=== PATIENT | male | born 1975 | race Caucasian/White ===

== ENCOUNTER 2024-02-13 06:13 | Inpatient (IN) | payer OTHER, SELFPAY ==
[2024-02-13] VITALS (16 sets, daily range): BP systolic 122–142; BP diastolic 80–102; PULSE 79–111; RESP 24–26; TEMP 36.1–36.6; O2SAT 76–94; BMI 33.1; BMI 33.3
--- NOTE | 2024-02-13 06:30 | CRLHL7_ITS ---
For Patients: As a result of the Cures Act, medical imaging exams and procedure reports are released immediately into your electronic medical record. You may view this report before your referring provider. If you have questions, please contact your health care provider. INDICATION: Hypoxia, COVID COMPARISON: None. TECHNIQUE: PA and lateral 2 view chest. FINDINGS: Lung volumes are moderate. Diffuse reticulonodular/interstitial opacity. No pulmonary edema. No pleural effusion. No pneumothorax. No pneumomediastinum. Cardiomegaly. Normal upper mediastinal contours. Bones: Normal for age. IMPRESSION: Pattern of lung opacities typically seen with viral or atypical infection. Cardiomegaly without findings of pulmonary edema. Dictated by Lissett Durand MD @ 02/13/2024 7:02:30 AM (Electronically Signed)
[2024-02-13 06:41] LABS: HCO3 VBG 29 mmol/L (21-28); PCO2 VBG 50 mmHG (40-50); PO2 VBG 54.7 mmHG (25-47); pH VBG 7.372 (7.32-7.43)
[2024-02-13 06:45] LABS: Basophils Absolute Auto 0.01 K/uL (0.00-0.30); Basophils Percent Auto 0.2 % (0.0-3.0); Hematocrit 35.4 % (37.0-53.0); Hemoglobin* 11.1 gm/dL (13.5-17.5); Immature Granulocytes Abs Auto 0.02 K/uL (0.00-0.30); Immature Granulocytes Pct Auto 0.3 %; Lymphocytes Percent Auto 10.3 % (20-44); Mean Corpuscular HGB Conc 31 gm/dL (32-36); Mean Corpuscular Hemoglobin 31 pg (26-34); Mean Corpuscular Volume 99 fL (80-100); Monocytes Percent Auto 11.9 % (0.0-11.0); Neutrophils Percent Auto 77.3 % (42.0-72.0); Platelet Count* 170 K/uL (140-440); Red Blood Count 3.57 m/uL (4.30-5.90); White Blood Count* 6.12 K/uL (4.50-11.00)
[2024-02-13 06:55] LABS: Slide Review Reflex No
--- NOTE | 2024-02-13 06:59 | ED_ITS ---
HPI - SOB/Dyspnea General Date Seen: 02/13/24 Chief Complaint: Shortness of Breath/Dyspnea Stated Complaint: Covid + and SOB Time Seen by Provider: 02/13/24 06:29 Source: patient Mode of arrival: ambulatory Limitations: no limitations History of Present Illness HPI Narrative: Patient is a 49-year-old male who was in his usual state of health until about four days ago when he developed a cough and chest congestion. His girlfriend had tested positive for COVID. He did a home COVID test two days ago that was positive. He did not call the clinic for consideration of an appointment or tr eatment but has contraindications to Paxlovid. His symptoms worsened yesterday and got much worse during the night with increased shortness of breath. He presents this morning struggling to breathe with a continuous cough. He denies chest pains. He has not been eating or drinking well but denies nausea and vomiting. No history of lung disease. He has type 2 diabetes but does not check his blood sugar. His medications include Flomax, Lamictal, atorvastatin, Seroquel, sertraline, omeprazole. He received COVID vaccine a couple of years ago but nothing the past 1-2 years. Related Data Home Medications ?Medication ?Instructions ?Recorded ?Confirmed atorvastatin 80 mg tablet 80 mg PO QPM 02/13/24 02/13/24 lamotrigine 150 mg tablet 150 mg PO BID 02/13/24 02/13/24 omeprazole 20 mg tablet,delayed 20 mg PO DAILY 02/13/24 02/13/24 release quetiapine 100 mg tablet 300 mg PO QPM 02/13/24 02/13/24 sertraline 100 mg tablet 200 mg PO DAILY 02/13/24 02/13/24 tamsulosin 0.4 mg capsule 0.4 mg PO DAILY 02/13/24 02/13/24 Allergies Allergy/AdvReac Type Severity Reaction Status Date / Time No Known Drug Allergies Allergy Verified 02/13/24 08:01 Review of Systems Narrative: Review of systems is outlined above otherwise noted to be negative. He does not check his blood sugars. His PCP is in [place]. [facility] Medical History (Updated 02/13/24 @ 07:33 by Guero Godoy MD) GERD (gastroesophageal reflux disease) ?K21.9 - Gastro-esophageal reflux disease without esophagitis (ICD-10) BPH (benign prostatic hyperplasia) ?N40.0 - Benign prostatic hyperplasia without lower urinary tract symptoms (ICD-10) Major depression, chronic ?F32.9 - Major depressive disorder, single episode, unspecified (ICD-10) Mixed hyperlipidemia ?E78.2 - Mixed hyperlipidemia (ICD-10) Type 2 diabetes mellitus, without long-term current use of insulin ?E11.9 - Type 2 diabetes mellitus without complications (ICD-10) Social History (Updated 02/13/24 @ 07:29 by Guero Godoy MD) 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 He is in moderate respiratory distress with some audible wheezing. HEENT: Conjunctiva clear. Tympanic membranes are pearly white bilaterally. Posterior pharynx is clear without erythema or exudate. Neck is supple without adenopathy. Lungs: Coarse and congested throughout. There is expiratory wheezes. No localizing rales or rhonchi. Heart: Regular rate and rhythm without murmur. Abdomen: Soft and nontender. No guarding, rigidity, rebound. Bowel sounds are normal. No palpable masses. Extremities: No cyanosis or edema. Good distal pulses. Skin: No abnormalities noted of the exposed skin. Neurologic: Awake, alert, fully oriented. Neurologic exam is nonfocal. Const: Vital Signs, click to edit/add: Vital Signs - 24 hr 02/13/24 06:24 02/13/24 06:25 02/13/24 06:38 Temperature 97.8 F Pulse Rate [Pulse Oximeter] 111 H Respiratory Rate 26 H Blood Pressure [Ri ght Upper Arm] 136/82 Pulse Oximetry 76 L 92 92 Oxygen Delivery Me thod Room Air OxyMask Oxygen Flow Rate 5 02/13/24 06:38 Temperature Pulse Rate [Pulse Oximeter] Respiratory Rate Blood Pressure [Ri ght Upper Arm] Pulse Oximetry 92 Oxygen Delivery Me thod OxyMask Oxygen Flow Rate 5 Course Course ED Course: Patient is seen and examined. With an OxyMask at 5 L we are able to get his sats up to 91%. Labs and chest x-ray are ordered. He is given a DuoNeb. IV is established and he is given remdesivir 200 mg and dexamethasone 10 mg IV. Reevaluation(s) Reevaluation #1: CBC shows a white blood count of 6000, hemoglobin 11.1, normal platelet count. Venous blood gas shows pH 7.37, pCO2 50, PO2 54. Basic metabolic panel is normal other than a sodium of 133 and a glucose of 202. D-dimer is 0.68. LFTs and CRP are pending. Chest x-ray shows diffuse interstitial infiltrates but no consolidation. CT of the chest is ordered. Reevaluation #2: LFTs are normal. CRP is 26. CT scan of the chest shows diffuse infiltrates but no evidence of pulmonary embolism or consolidation. I attempted to order Tocilizumab 800mg IV but the order was canceled by pharmacy. I spoke with Carrie Marrufo who kindly agrees to admit him for further care. Vital Signs Vital signs: Initial Vital Signs Temperature 97.8 F 02/13/24 06:24 Temperature Source Temporal Artery Scan 02/13/24 06:24 Pulse Rate 111 H 02/13/24 06:24 Respiratory Rate 26 H 02/13/24 06:24 Respiratory Effort Normal, Spontaneous, Non-Labored 02/13/24 06:24 Respiratory Depth Normal 02/13/24 06:24 Respiratory Pattern Tachypnea 02/13/24 06:24 Blood Pressure 136/82 02/13/24 06:24 Blood Pressure Mean 100 02/13/24 06:24 Blood Pressure Position Sitting 02/13/24 06:24 Pulse Oximetry 76 L 02/13/24 06:24 Oxygen Delivery Method Room Air 02/13/24 06:24 Vital Signs Temperature 97.8 F 02/13/24 06:24 Pulse Rate 111 H 02/13/24 06:24 Respiratory Rate 26 H 02/13/24 06:24 Blood Pressure 136/82 02/13/24 06:24 Pulse Oximetry 76 L 02/13/24 06:24 Oxygen Delivery Method Room Air 02/13/24 06:24 Temperature 97.8 F 02/13/24 06:24 Pulse Rate 111 H 02/13/24 06:24 Respiratory Rate 26 H 02/13/24 06:24 Blood Pressure 136/82 02/13/24 06:24 Pulse Oximetry 92 02/13/24 06:38 Oxygen Delivery Method OxyMask 02/13/24 06:38 Oxygen Flow Rate 5 02/13/24 06:38 Medications Administered Medications: Discontinued Medications Generic Name Dose Route Start Last Admin Trade Name Lara PRN Reason Stop Dose Admin Albuterol/Ipratropium 1 neb 02/13/24 06:57 02/13/24 07:21 Iprat-Albut 0.5-2.5 Mg/3 Ml Neb IH 02/13/24 06:58 1 neb ONCE ONE Administration Dexamethasone 10 mg 02/13/24 07:07 02/13/24 07:24 Dexamethasone 10 Mg/Ml Inj IVP 02/13/24 07:08 10 mg ONCE ONE Administration Remdesivir 200 mg/ Sodium 290 mls @ 290 mls/hr 02/13/24 07:30 02/13/24 07:24 Chloride IVPB 02/13/24 08:29 290 mls/hr ONCE ONE Administration MDM - SOB/Dyspnea Lab Data Labs: Lab Results 02/13/24 02/13/24 02/13/24 Range/Units 06:38 07:03 07:45 WBC 6.12 (4.50-11.00) K/uL RBC 3.57 L (4.30-5.90) m/uL Hgb 11.1 L (13.5-17.5) gm/dL Hct 35.4 L (37.0-53.0) % MCV 99 (80-100) fL MCH 31 (26-34) pg MCHC 31 L (32-36) gm/dL RDW Coeff of All 14.0 (11.5-15.5) % Plt Count 170 (140-440) K/uL Neut % (Auto) 77.3 H (42.0-72.0) % Lymph % (Auto) 10.3 L (20-44) % [place] % (Auto) 11.9 H (0.0-11.0) % Eos % (Auto) 0.0 (0.0-7.0) % Baso % (Auto) 0.2 (0.0-3.0) % Neut # (Auto) 4.70 (1.7-7.0) K/uL Lymph # (Auto) 0.60 L (0.90-2.90) K/uL [place] # (Auto) 0.70 (0.00-0.90) K/UL Eos # (Auto) 0.00 (0.00-0.50) K/uL Baso # (Auto) 0.01 (0.00-0.30) K/uL Abs Immat Gran (auto) 0.02 (0.00-0.30) K/uL Imm/Tot Granulo (auto) 0.3 % D-Dimer Quant (PE/DVT) 0.68 H (0.00-0.50) ug/ml VBG pH 7.372 (7.32-7.43) VBG pCO2 50 (40-50) mmHG VBG pO2 54.7 H (25-47) mmHG VBG HCO3 29 H (21-28) mmol/L Sodium 133 L (135-149) mmol/L Potassium 4.4 (3.6-5.1) mmol/L Chloride 96 (96-114) mmol/L Carbon Dioxide 29 (20-32) mmol/L Anion Gap 8 (7-15) mEq/L BUN 13 (5-24) mg/dL Creatinine 0.8 (0.5-1.5) mg/dL Estimated Creat Clear 103.01 Estimated GFR 110 ml/min Glucose 202 H (60-115) mg/dL Calcium 8.8 (8.4-10.6) mg/dL Total Bilirubin 0.3 (0.1-1.5) mg/dL Direct Bilirubin 0.3 (0.0-0.5) mg/dL AST 30 (12-35) U/L ALT 23 (4-50) U/L Alkaline Phosphatase 53 (40-150) U/L C-Reactive Protein 26.1 H (0.5-1.0) mg/dL Total Protein 6.7 (6.0-8.3) g/dL Albumin 4.0 (3.3-5.0) g/dL SARS-CoV-2 (PCR) POSITIVE SARS-CoV-2 A (Negative) Influenza Type A (PCR) Negative PCR FLU A (Negative) Influenza Type B (PCR) Negative PCR FLU B (Negative) Lab Acknowledgement Test Added Discharge Plan Discharge Clinical Impression: COVID-19, Hypoxia Patient Disposition: Admitted As Inpatient Condition: Guarded
[2024-02-13 07:08] LABS: Chloride* 96 mmol/L (96-114); Potassium* 4.4 mmol/L (3.6-5.1); Sodium* 133 mmol/L (135-149)
[2024-02-13 07:11] LABS: Anion Gap 8 mEq/L (7-15); Blood Urea Nitrogen* 13 mg/dL (5-24); Carbon Dioxide* 29 mmol/L (20-32); Creatinine* 0.8 mg/dL (0.5-1.5); D Dimer Quantitative* 0.68 ug/ml (0.00-0.50); Est. Creatinine Clearance* 103.01; Estimated Glomerular Filt Rate 110 ml/min; Glucose* 202 mg/dL (60-115)
[2024-02-13 07:12] LABS: Calcium* 8.8 mg/dL (8.4-10.6)
[2024-02-13] MEDS: IPRAT-ALBUT 0.5-2.5 MG/3 ML NEB 1 NEB IH (07:21)
[2024-02-13] MEDS: dexAMETHasone 10 MG/ML inj IVP (07:24)
--- NOTE | 2024-02-13 07:26 | CRLHL7_ITS ---
For Patients: As a result of the Century Cures Act, medical imaging exams and procedure reports are released immediately into your electronic medical record. You may view this report before your referring provider. If you have questions, please contact your health care provider. Indication: COVID, shortness of breath. Technique: CT pulmonary arteriography of the chest was performed following the administration of 95 mL Isovue 370. Comparison: 02/13/2024 radiographs. Findings: Lungs and pleura: Respiratory motion. There are patchy nodular/tree-in-bud opacities within both lungs, most pronounced in the right lower lobe. Mild interlobular septal thickening on the right. Trace right pleural effusion. No left pleural effusion. No pneumothorax. Small amount of secretions within the trachea. Heart and great vessels: Borderline enlarged heart. No pericardial effusion. Aorta and pulmonary artery are normal in caliber. Pulmonary artery opacification is adequate. Evaluation of the distal segmental and subsegmental pulmonary artery branches is limited due to respiratory motion. No pulmonary embolism is identified to the proximal segmental level. Thyroid and mediastinum: Thyroid is normal. Enlarged right greater than left hilar lymph nodes measuring up to 1.6 cm in short axis. Prominent mediastinal lymph nodes which measure less than 1 cm in short axis. Chest wall: Unremarkable. Visualized upper abdomen: Unremarkable. 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 Minimal multilevel degenerative disc disease. Impression: 1. Limited evaluation of the distal segmental and subsegmental pulmonary arteries due to respiratory motion. No pulmonary embolism identified to the proximal segmental level. 2. Multifocal nodular/tree-in-bud opacities within both lungs favoring bronchiolitis/bronchopneumonia. 3. Right greater than left hilar lymphadenopathy, favored to be reactive. Please note that all CT scans at this facility use dose modulation, iterative reconstruction, and/or weight-based dosing when appropriate to reduce radiation dose to as low as reasonably achievable. Dictated by Cortney Zambrano MD @ 02/13/2024 8:20:04 AM (Electronically Signed)
[2024-02-13 07:29] LABS: Alanine Aminotransferase* 23 U/L (4-50); Alkaline Phosphatase* 53 U/L (40-150); Aspartate Amino Transferase* 30 U/L (12-35); Bilirubin Direct* 0.3 mg/dL (0.0-0.5); Bilirubin Total* 0.3 mg/dL (0.1-1.5); Total Protein* 6.7 g/dL (6.0-8.3)
[2024-02-13 07:46] LABS: C Reactive Protein* 26.1 mg/dL (0.5-1.0)
--- NOTE | 2024-02-13 08:21 | PM.IMHP1 ---
Hospitalist- H&P: HPI History of Present Illness Date Seen: 02/13/24 Chief complaint: Covid + and SOB Narrative: Mushtaq Beltran is a 49 year old male who presented to the ER this morning for cough and dyspnea. Known COVID infection (home test positive on 02/10), has felt poorly since 02/07. This morning, breathing was quite a bit worse, so presented to Emergency Department. ER Course and Findings: - presenting VS: O2 saturation 76% on RA, HR 111, RR 26, T 97.8 - Hgb 11.1 (was 13.5 in February 2023) - elevated D-dimer, no acute abnormalities on CXR or CTA of chest - normal WBC, + lymphopenia - Given Dexamethasone, Duoneb, and Remdesivir No previous lung disease. Histories updated below. PCP is Dr. Hernandez at [facility]. Review of Systems Status of ROS: Reports: 10 or more systems reviewed and unremarkable except as noted in History and below Narrative: - mild nausea, no vomiting or diarrhea PFSH PFSH Medical History (Updated 02/13/24 @ 10:49 by Nelsy Winston MD) GERD (gastroesophageal reflux disease) ?K21.9 - Gastro-esophageal reflux disease without esophagitis (ICD-10) BPH (benign prostatic hyperplasia) ?N40.0 - Benign prostatic hyperplasia without lower urinary tract symptoms (ICD-10) Major depression, chronic ?F32.9 - Major depressive disorder, single episode, unspecified (ICD-10) Mixed hyperlipidemia ?E78.2 - Mixed hyperlipidemia (ICD-10) Type 2 diabetes mellitus, without long-term current use of insulin ?E11.9 - Type 2 diabetes mellitus without complications (ICD-10) Surgical History (Updated 02/13/24 @ 10:43 by Nelsy Winston MD) History of tonsillectomy ?Z90.89 - Acquired absence of other organs (ICD-10) Social History (Updated 02/13/24 @ 10:43 by Nelsy Winston MD) Narrative: nursing home partner would be MDM if needed, non-smoker (uses chewing tobacco), no ETOH use. Works in [employer]. Full Code. What is your current living situation?: I presently have a place to live Problems where you live: no known problems Problems where you live details: NA In the past 12 months, utilities in danger of being shut off: no In the past 12 mos, have been you worried that your food would run out before you had money to buy more?: never true In the past 12 mos, the food you bought just didn't last and you didn't have money to buy more?: never true Highest level of school completed/degree received: high school graduate Smoking Status: Former smoker Do you use any of these nicotine containing products: Smokeless Tobacco Second hand tobacco smoke exposure: Yes How often do you have a drink containing alcohol: never AUDIT-C Alcohol total score: 0 Non-prescribed substance use: denies use Caffeine: Yes How often does anyone, including family, friends and others, physically hurt you: never How often does anyone, including family, friends and others, insult or talk down to you: never How often does anyone, including family, friends and others, threaten you with harm: never How often does anyone, including family, friends and others, scream or curse at you: never Meds Home Medications and Allergies Home Medications ?Medication ?Instructions ?Recorded ?Confirmed ?Type atorvastatin 80 mg tablet 80 mg PO QPM 02/13/24 02/13/24 History lamotrigine 150 mg tablet 150 mg PO BID 02/13/24 02/13/24 History omeprazole 20 mg tablet,delayed 20 mg PO DAILY 02/13/24 02/13/24 History release quetiapine 100 mg tablet 300 mg PO QPM 02/13/24 02/13/24 History sertraline 100 mg tablet 200 mg PO DAILY 02/13/24 02/13/24 History tamsulosin 0.4 mg capsule 0.4 mg PO DAILY 02/13/24 02/13/24 History Allergies Allergy/AdvReac Type Severity Reaction Status Date / Time No Known Drug Allergies Allergy Verified 02/13/24 08:01 Exam Narrative: Exam Narrative: GEN: Alert and oriented, answering questions appropriately. Appears ill and wearing supplemental oxygen HEENT: EOMIs bilaterally, no scleral icterus CV: RRR, No concerning murmurs R: Intermittent tachypnea, able to speak in full sentences, rhonchi throughout bilateral lung [place] Ab: Soft, nondistended, tolerates palpation Ext: wwp, no concerning edema Skin: No concerning skin lesions or rashes on exposed skin Neuro: Nonfocal Psych: Appropriate Const: Vital Signs, click to edit/add: Vital Signs - 24 hr 02/13/24 06:24 02/13/24 06:25 02/13/24 06:38 Temperature 97.8 F Pulse Rate [Pulse Oximeter] 111 H Respiratory Rate 26 H Blood Pressure [Ri ght Upper Arm] 136/82 Pulse Oximetry 76 L 92 92 Oxygen Delivery Me thod Room Air OxyMask Oxygen Flow Rate 5 02/13/24 06:38 Temperature Pulse Rate [Pulse Oximeter] Respiratory Rate Blood Pressure [Ri ght Upper Arm] Pulse Oximetry 92 Oxygen Delivery Me thod OxyMask Oxygen Flow Rate 5 Hospitalist - H&P: Result Labs Labs: Short CBC 02/13/24 Range/Units 06:38 WBC 6.12 (4.50-11.00) K/uL Hgb 11.1 L (13.5-17.5) gm/dL Hct 35.4 L (37.0-53.0) % Plt Count 170 (140-440) K/uL BMP 02/13/24 06:38 Sodium 133 L Potassium 4.4 Chloride 96 Carbon Dioxide 29 BUN 13 Creatinine 0.8 Glucose 202 H Calcium 8.8 Liver Function 02/13/24 Range/Units 06:38 Total Bilirubin 0.3 (0.1-1.5) mg/dL Direct Bilirubin 0.3 (0.0-0.5) mg/dL AST 30 (12-35) U/L ALT 23 (4-50) U/L Alkaline Phosphatase 53 (40-150) U/L Albumin 4.0 (3.3-5.0) g/dL Assessment and Plan Assessment and plan (1) Acute hypoxic respiratory failure: Problem comment: - 2/2 acute COVID infection - COVID specific therapies per below, RT referral, supplemental oxygen Status: Acute (2) COVID-19: Problem comment: - Remdesivir and Dexamethasone initiated in ER on 02/12 - given length of illness and oxygen requirement, will transition to Baricitinib as COVID-specific therapy Status: Acute (3) Type 2 diabetes mellitus, without long-term current use of insulin: Problem comment: - diet controlled, last A1C 6.4 (01/31/24) - anticipate some degree of hyperglycemia while on steroid therapy - accuchecks and SSI Status: Acute (4) GERD (gastroesophageal reflux disease): Problem comment: - continue PPI Status: Acute Plan - per above - partner updated at bedside, questions answered
[2024-02-13 08:30] LABS: PCR FLU A Negative PCR FLU A (Negative); PCR FLU B Negative PCR FLU B (Negative); SARS PCR* POSITIVE SARS-CoV-2 (Negative)
[2024-02-13] MEDS: BARICITINIB 2 MG TAB 4 MG PO (11:20)
[2024-02-13] MEDS: NICOTINE 4 MG GUM BUCCAL ×3 (11:28→21:57)
[2024-02-13] MEDS: ATORVASTATIN CALCIUM 40 MG TABLET 80 MG PO (18:13)
--- NOTE | 2024-02-13 18:27 | PC.NURSE ---
Pt alert and oriented. Pt had no complaints of pain. Pt up with SBA at bedside. Pt is on High Flow O2 settings 30;50;36 maintaining saturations of 88-93%. Per RT Pt to be 88% or higher. Pt has SOB at rest and with exertion. Pt has been using aerobika and has been able to expel some secretions.?
[2024-02-13] MEDS: ENOXAPARIN 40 MG/0.4 ML INJ SUBCUT (21:54)
[2024-02-13] MEDS: QUETIAPINE 100 MG TABLET 300 MG PO (21:54)
[2024-02-13] MEDS: SODIUM CHLORIDE 0.9 % (FLUSH) 10 ML SYRINGE 5 ML IVF (21:55)
[2024-02-13] MEDS: lamoTRIgine 100 MG TABLET 150 MG PO (21:55)
[2024-02-14] VITALS (16 sets, daily range): BP systolic 125–148; BP diastolic 67–96; PULSE 68–85; RESP 20–24; TEMP 35.8–37.2; O2SAT 87–95
[2024-02-14] MEDS: NICOTINE 4 MG GUM BUCCAL ×2 (02:37→18:11)
[2024-02-14] MEDS: ACETAMINOPHEN 325 MG TABLET 975 MG PO ×2 (02:40→21:29)
[2024-02-14] MEDS: OMEPRAZOLE 20 MG CAPSULE DR PO (06:07)
--- NOTE | 2024-02-14 06:24 | PC.NURSE ---
[id number] Pt up watching tv most of night, tolerating HFNC. occasionally desats into low/mid 80's while sleeping, does come back up to 88% or more. ambulated to br x1 during shift with 5 LMP oxymask, sba, tolerated activity well. o2 sats 90% upon return to bed. headache during night, relief with prn tylenol. slept well during the morning hours.
[2024-02-14 06:49] LABS: Basophils Absolute Auto 0.01 K/uL (0.00-0.30); Basophils Percent Auto 0.2 % (0.0-3.0); Immature Granulocytes Abs Auto 0.04 K/uL (0.00-0.30); Immature Granulocytes Pct Auto 0.6 %; Lymphocytes Percent Auto 18.1 % (20-44); Mean Corpuscular HGB Conc 31 gm/dL (32-36); Mean Corpuscular Hemoglobin 31 pg (26-34); Mean Corpuscular Volume 101 fL (80-100); Monocytes Percent Auto 10.6 % (0.0-11.0); Neutrophils Absolute Auto 4.41 K/uL (1.7-7.0); Neutrophils Percent Auto 70.5 % (42.0-72.0); Platelet Count* 229 K/uL (140-440); RDW Coefficient of Variation % 14.4 % (11.5-15.5); Red Blood Count 3.87 m/uL (4.30-5.90); White Blood Count* 6.25 K/uL (4.50-11.00)
[2024-02-14 07:01] LABS: Slide Review Reflex No
[2024-02-14 07:03] LABS: Chloride* 101 mmol/L (96-114)
[2024-02-14 07:04] LABS: Albumin* 4.1 g/dL (3.3-5.0); Potassium* 4.2 mmol/L (3.6-5.1); Sodium* 141 mmol/L (135-149)
[2024-02-14 07:06] LABS: Creatinine* 0.8 mg/dL (0.5-1.5); Est. Creatinine Clearance* 103.01; Estimated Glomerular Filt Rate 110 ml/min
[2024-02-14 07:07] LABS: Alanine Aminotransferase* 22 U/L (4-50); Alkaline Phosphatase* 72 U/L (40-150); Aspartate Amino Transferase* 23 U/L (12-35); Bilirubin Total* 0.2 mg/dL (0.1-1.5); Blood Urea Nitrogen* 22 mg/dL (5-24); Glucose* 136 mg/dL (60-115); Total Protein* 7.1 g/dL (6.0-8.3)
[2024-02-14 07:16] LABS: Anion Gap 6 mEq/L (7-15); Carbon Dioxide* 34 mmol/L (20-32)
[2024-02-14 07:23] LABS: C Reactive Protein* 23.8 mg/dL (0.5-1.0)
[2024-02-14] MEDS: SODIUM CHLORIDE 0.9 % (FLUSH) 10 ML SYRINGE 5 ML IVF ×2 (08:31→21:32)
[2024-02-14] MEDS: TAMSULOSIN HCL 0.4 MG CAPSULE PO (08:31)
[2024-02-14] MEDS: lamoTRIgine 100 MG TABLET 150 MG PO ×2 (08:31→21:27)
[2024-02-14] MEDS: SERTRALINE 100 MG TABLET 200 MG PO (08:31)
[2024-02-14] MEDS: dexAMETHasone 2 MG TABLET 6 MG PO (08:31)
[2024-02-14 09:48] LABS: HCO3 VBG 31 mmol/L (21-28); PCO2 VBG 49 mmHG (40-50); PO2 VBG 75.9 mmHG (25-47); pH VBG 7.418 (7.32-7.43)
[2024-02-14] MEDS: BARICITINIB 2 MG TAB 4 MG PO (10:37)
--- NOTE | 2024-02-14 12:23 | PM.IMPN1 ---
Progress Note: A&P Assessment and plan (1) Acute hypoxic respiratory failure: Problem details: - 2/2 acute COVID infection, suspect complicated by undiagnosed ESTHER and possibly also undiagnosed COPD - COVID specific therapies per below, RT referral, supplemental oxygen Status: Acute (2) COVID-19: Problem details: - Remdesivir and Dexamethasone initiated in ER on 02/12 - given length of illness and oxygen requirement, also started on Baricitinib as COVID-specific therapy - VBG recheck today and there is no hypercapnia, continue high-flow nasal cannula Status: Acute (3) Mixed hyperlipidemia: Problem details: - on atorvastatin Status: Chronic (4) Type 2 diabetes mellitus, without long-term current use of insulin: Problem details: - diet controlled, last A1C 6.4 (01/31/24) - anticipate some degree of hyperglycemia while on steroid therapy - accuchecks and SSI, point of care glucoses are within goal, 140s to 150s, continue current regimen Status: Chronic (5) GERD (gastroesophageal reflux disease): Problem details: - continue PPI Status: Chronic (6) BPH (benign prostatic hyperplasia): Problem details: - on Tamsulosin Status: Chronic (7) Major depression, chronic: Problem details: - Dr. King is psychiatrist Status: Chronic Plan - given the appearance of CT scan, I have also considered possible overlying bacterial infection, however patient does not have a fever and white count is within normal limits. Will hold off on antibiotics at this time, but these could be considered if condition worsens or if fever or white count develop. Subjective Time Seen by Provider: 11:30 Date Seen: 02/14/24 Interval history: Huber says he feels much better today. SOB is improving and he feels more awake. He tells me he had a pain in the low right side of his chest before he came in that would hurt when he took a deep breath, but that has resolved. - smoked 1.5 packs of cigarettes per day for 30 years, quit 7 years ago - vapes several times a year, most recently 1 month ago - smokes marijuana occasionally Exam Narrative: Exam Narrative: General: No acute distress. Awake, alert, oriented x3. Answering questions appropriately. On high-flow with nasal cannula nares. No pallor. No jaundice. Oropharynx: Clear. Mucous membranes moist. Cardiovascular: Regular rate and rhythm. No murmurs, gallops, or rubs. Respiratory: Poor air movement. No wheezes or crackles. No egophony. Abdomen: Bowel sounds present. Soft, nondistended, nontender. Extremities: No pedal edema. Const: Vital Signs, click to edit/add: Vital Signs - 24 hr 02/13/24 14:00 02/13/24 14:54 02/13/24 14:58 Temperature 97.0 F L Pulse Rate [Bilate ral Radial] Pulse Rate [Pulse Oximeter] 79 Respiratory Rate 26 H 26 H Blood Pressure [Le ft Arm] 140/80 H Pulse Oximetry 91 91 Oxygen Delivery Me thod High Flow Nasal Ca nnula High Flow Nasal Ca nnula Oxygen Flow Rate 30 Fraction of Inspir ed Oxygen 50 50 02/13/24 16:19 02/13/24 18:14 02/13/24 19:00 Temperature 97.6 F Pulse Rate [Bilate ral Radial] 79 Pulse Rate [Pulse Oximeter] 79 Respiratory Rate 24 Blood Pressure [Le ft Arm] 122/102 H Pulse Oximetry 91 Oxygen Delivery Me thod High Flow Nasal Ca nnula Oxygen Flow Rate 30 Fraction of Inspir ed Oxygen 50 50 50 02/13/24 20:00 02/13/24 22:00 02/13/24 23:00 Temperature Pulse Rate [Bilate ral Radial] Pulse Rate [Pulse Oximeter] 85 Respiratory Rate 24 Blood Pressure [Le ft Arm] Pulse Oximetry Oxygen Delivery Me thod Oxygen Flow Rate Fraction of Inspir ed Oxygen 50 50 02/13/24 23:00 02/13/24 23:00 02/14/24 00:00 Temperature 97.3 F L Pulse Rate [Bilate ral Radial] Pulse Rate [Pulse Oximeter] 86 Respiratory Rate 24 24 Blood Pressure [Le ft Arm] 132/101 H Pulse Oximetry 89 91 Oxygen Delivery Me thod High Flow Nasal [place] High Flow Nasal Ca nn[place] Oxygen Flow Rate 30 30 Fraction of Inspir ed Oxygen 50 50 50 02/14/24 02:00 02/14/24 02:53 02/14/24 04:00 Temperature 97.1 F L Pulse Rate [Bilate ral Radial] Pulse Rate [Pulse Oximeter] 77 Respiratory Rate 24 Blood Pressure [Le ft Arm] 125/96 H Pulse Oximetry 89 Oxygen Delivery Me thod High Flow Nasal [place] Oxygen Flow Rate 30 Fraction of Inspir ed Oxygen 50 50 50 02/14/24 06:00 02/14/24 06:20 02/14/24 06:21 Temperature 96.7 F L Pulse Rate [Bilate ral Radial] Pulse Rate [Pulse Oximeter] 68 Respiratory Rate 24 24 Blood Pressure [Le ft Arm] 138/82 Pulse Oximetry 90 90 Oxygen Delivery Me thod High Flow Nasal Ca nnula High Flow Nasal Ca nnula Oxygen Flow Rate 30 30 Fraction of Inspir ed Oxygen 50 50 50 02/14/24 08:00 02/14/24 08:00 02/14/24 11:01 Temperature Pulse Rate [Bilate ral Radial] Pulse Rate [Pulse Oximeter] Respiratory Rate Blood Pressure [Le ft Arm] Pulse Oximetry 93 Oxygen Delivery Me thod Oxygen Flow Rate Fraction of Inspir ed Oxygen 50 50 02/14/24 11:01 Temperature 96.5 F L Pulse Rate [Bilate ral Radial] Pulse Rate [Pulse Oximeter] 70 Respiratory Rate 20 Blood Pressure [Le ft Arm] 133/82 Pulse Oximetry 93 Oxygen Delivery Me thod High Flow Nasal Ca nnula Oxygen Flow Rate Fraction of Inspir ed Oxygen Labs Labs: Laboratory Results - last 24 hr 02/14/24 02/14/24 06:30 09:40 WBC 6.25 RBC 3.87 L Hgb 12.0 L Hct 39.0 MCV 101 H MCH 31 MCHC 31 L RDW Coeff of All 14.4 Plt Count 229 Neut % (Auto) 70.5 Lymph % (Auto) 18.1 L [place] % (Auto) 10.6 Eos % (Auto) 0.0 Baso % (Auto) 0.2 Neut # (Auto) 4.41 Lymph # (Auto) 1.10 [place] # (Auto) 0.70 Eos # (Auto) 0.00 Baso # (Auto) 0.01 Abs Immat Gran (auto) 0.04 Imm/Tot Granulo (auto) 0.6 VBG pH 7.418 VBG pCO2 49 VBG pO2 75.9 H VBG HCO3 31 H Sodium 141 Potassium 4.2 Chloride 101 Carbon Dioxide 34 H Anion Gap 6 L BUN 22 Creatinine 0.8 Estimated Creat Clear 103.01 Estimated GFR 110 Glucose 136 H Calcium 9.0 Total Bilirubin 0.2 AST 23 ALT 22 Alkaline Phosphatase 72 C-Reactive Protein 23.8 H Total Protein 7.1 Albumin 4.1
[2024-02-14] MEDS: ATORVASTATIN CALCIUM 40 MG TABLET 80 MG PO (18:11)
--- NOTE | 2024-02-14 19:58 | RESP.RT ---
Patient tested positive for Covid and has been on HFNC 45% @ 30Lpm SATing 88-94%. Patient is to use 10L Oxymask when he is up ambulating in the room. Patient has stated that he does not like to wear O2 when he is up, but we have explained several times that O2 demand is higher with activity and that he will desaturate faster when he is up walking. We are still encouraging him to be up and active. He has a strong productive cough and is able to use the Aerobika independently. Patient has undiagnosed sleep apnea and desaturates frequently while sleeping. Patient is encouraged to follow up with a sleep study as an outpatient.
[2024-02-14] MEDS: ENOXAPARIN 40 MG/0.4 ML INJ SUBCUT (21:26)
[2024-02-14] MEDS: QUETIAPINE 100 MG TABLET 300 MG PO (21:27)
[2024-02-15] VITALS (10 sets, daily range): BP systolic 119–138; BP diastolic 71–98; PULSE 59–76; RESP 19–20; TEMP 36.6–37.2; O2SAT 91–98
[2024-02-15] MEDS: NICOTINE 4 MG GUM BUCCAL ×2 (02:37→09:33)
[2024-02-15] MEDS: OMEPRAZOLE 20 MG CAPSULE DR PO (06:30)
--- NOTE | 2024-02-15 08:08 | PC.NURSE ---
Shift note ([id number]):?Patient pleasant, alert and oriented. Ambulates independently in room.?Given PRN Tylenol at HS for headache?rated 06/18. O2 sats 89-92% via?HFNC while awake. O2 sats drop below 89% during NOC; consistent with ESTHER. ?
--- NOTE | 2024-02-15 08:44 | RESP.RT ---
Patient found with HFNC off, snoring, SaO2 73%. Replaced HFNC, SaO2 increased to 92% in one minute. Respiratory rate 20/minute, patient breathing regular/easy, no notice of use of accessary muscles in use of breathing. BBS diminished with fine cracackles noted, increased with deep breaths, clears slightly with cough. Patient using Aerobika effectively, promoting fair dry, coarse, nonproductive cough. Continues on HFNC FiO2 45%, Flow 30Lpm, Temperature 36 degrees (C).
[2024-02-15] MEDS: lamoTRIgine 100 MG TABLET 150 MG PO ×2 (09:30→21:40)
[2024-02-15] MEDS: SERTRALINE 100 MG TABLET 200 MG PO (09:31)
[2024-02-15] MEDS: dexAMETHasone 2 MG TABLET 6 MG PO (09:31)
[2024-02-15] MEDS: SODIUM CHLORIDE 0.9 % (FLUSH) 10 ML SYRINGE 5 ML IVF ×2 (09:32→21:44)
[2024-02-15] MEDS: TAMSULOSIN HCL 0.4 MG CAPSULE PO (09:32)
--- NOTE | 2024-02-15 13:18 | RESP.RT ---
DuoNeb given, VSS during treatment. BBS improved with more air movement, slightly less crackles noted, but louder inspiratory wheeze due to more air movement, SaO2 93%, breathing regular/easy, 22/minute. Post treatment patient did Aerobika x10 with improved exhalation and good chest shake. Promoted good, loose, coarse, wet cough. swallowed secretions.
[2024-02-15] MEDS: BARICITINIB 2 MG TAB 4 MG PO (14:29)
[2024-02-15] MEDS: IPRAT-ALBUT 0.5-2.5 MG/3 ML NEB 1 NEB IH ×2 (14:35→21:44)
[2024-02-15] MEDS: INSULIN ASPART 100 UNIT/ML SUBCUT (15:53)
--- NOTE | 2024-02-15 17:25 | PM.IMPN1 ---
Progress Note: A&P Assessment and plan (1) Acute hypoxic respiratory failure: Problem details: - 2/2 acute COVID infection, suspect complicated by undiagnosed ESTHER and possibly also undiagnosed COPD - COVID specific therapies per below, RT referral, supplemental oxygen Status: Acute (2) COVID-19: Problem details: - Remdesivir and Dexamethasone initiated in ER on 02/12 - given length of illness and oxygen requirement, also started on Baricitinib as COVID-specific therapy - VBG's have shown no hypercapnia. Continue high-flow nasal cannula Status: Acute (3) Mixed hyperlipidemia: Problem details: - on atorvastatin Status: Chronic (4) Type 2 diabetes mellitus, without long-term current use of insulin: Problem details: - diet controlled, last A1C 6.4 (01/31/24) - anticipate some degree of hyperglycemia while on steroid therapy - accuchecks and SSI, point of care glucoses are within goal, 140s to 180s, continue current regimen Status: Chronic (5) GERD (gastroesophageal reflux disease): Problem details: - continue PPI Status: Chronic (6) BPH (benign prostatic hyperplasia): Problem details: - on Tamsulosin Status: Chronic (7) Major depression, chronic: Problem details: - Dr. King is psychiatrist Status: Chronic Plan - given the appearance of CT scan, I have also considered possible overlying bacterial infection, however patient does not have a fever and white count is within normal limits. Will hold off on antibiotics at this time, but these could be considered if condition worsens or if fever or white count develop. Subjective Time Seen by Provider: 10:50 Date Seen: 02/15/24 Interval history: Huber is still needing high flow today, but notes that he is feeling less SOB. No other complaints. Exam Narrative: Exam Narrative: General: No acute distress. Sleeping, arousable, oriented x3. Answering questions appropriately. On high-flow with nasal cannula nares. No pallor. No jaundice. Oropharynx: Clear. Mucous membranes moist. Cardiovascular: Regular rate and rhythm. No murmurs, gallops, or rubs. Respiratory: Moderate air movement, expiratory wheezes throughout. No crackles. Abdomen: Bowel sounds present. Soft, nondistended, nontender. Extremities: No pedal edema. Const: Vital Signs, click to edit/add: Vital Signs - 24 hr 02/14/24 17:34 02/14/24 19:00 02/14/24 19:57 Temperature 99 F Pulse Rate [Pulse Oximeter] 72 Respiratory Rate 20 Blood Pressure [Le ft Arm] 132/67 Pulse Oximetry 89 Oxygen Delivery Me thod High Flow Nasal Ca nnula Oxygen Flow Rate 30 30 Fraction of Inspir ed Oxygen 45 45 45 02/14/24 21:00 02/14/24 23:00 02/14/24 23:00 Temperature 98.7 F Pulse Rate [Pulse Oximeter] 85 Respiratory Rate 21 20 Blood Pressure [Le ft Arm] 128/88 Pulse Oximetry 92 92 Oxygen Delivery Me thod High Flow Nasal Ca nnula High Flow Nasal Ca nnula Oxygen Flow Rate 30 30 Fraction of Inspir ed Oxygen 45 45 45 02/15/24 02:25 02/15/24 02:25 02/15/24 05:00 Temperature 98.9 F Pulse Rate [Pulse Oximeter] 68 Respiratory Rate 20 Blood Pressure [Le ft Arm] 121/71 Pulse Oximetry 92 Oxygen Delivery Me thod High Flow Nasal Ca nnula Oxygen Flow Rate 30 Fraction of Inspir ed Oxygen 45 45 45 02/15/24 07:00 02/15/24 07:00 02/15/24 08:41 Temperature 98.2 F Pulse Rate [Pulse Oximeter] 59 L 66 Respiratory Rate 20 20 Blood Pressure [Le ft Arm] 131/98 H Pulse Oximetry 93 Oxygen Delivery Me thod High Flow Nasal Ca nnula Oxygen Flow Rate 30 30 Fraction of Inspir ed Oxygen 45 45 02/15/24 08:41 02/15/24 08:41 02/15/24 11:00 Temperature 98.6 F Pulse Rate [Pulse Oximeter] 66 Respiratory Rate 20 20 Blood Pressure [Le ft Arm] 134/91 H Pulse Oximetry 92 92 95 Oxygen Delivery Me thod High Flow Nasal Ca nnula High Flow Nasal Ca nnula Room Air Oxygen Flow Rate 30 30 Fraction of Inspir ed Oxygen 45 45 02/15/24 13:17 02/15/24 15:00 02/15/24 15:00 Temperature Pulse Rate [Pulse Oximeter] 68 Respiratory Rate 20 Blood Pressure [Le ft Arm] Pulse Oximetry Oxygen Delivery Me thod Oxygen Flow Rate 30 Fraction of Inspir ed Oxygen 45 50 02/15/24 15:00 02/15/24 15:00 Temperature 97.8 F Pulse Rate [Pulse Oximeter] 68 Respiratory Rate 20 20 Blood Pressure [Le ft Arm] 138/80 Pulse Oximetry 93 93 Oxygen Delivery Me thod Room Air Room Air Oxygen Flow Rate 30 30 Fraction of Inspir ed Oxygen 50 50
[2024-02-15] MEDS: ATORVASTATIN CALCIUM 40 MG TABLET 80 MG PO (18:00)
--- NOTE | 2024-02-15 18:45 | PC.NURSE ---
Shift Note: Pt friendly and cooperative, moves independently throughout his room . BP's and HR WNL. SpO2 91-93% on HFNC 30L/50%FiO2. Setting on HFNC increased as pt was desaturating to 84% on previous setting of 30L/45%FiO2. Afebrile. One moderate sized formed BM. Pt denies pain. He has been very diligent utilizing the aerobika. Pt encouraged to get up and move throughout his room several times daily and he has been increasing his activity. He transitions to 10L via oxymask to ambulate to the BR. Pt states he has been experiencing a productive cough with small amounts of green/creamy sputum. PRN duonebs throughout the day per RT Ariel.
[2024-02-15] MEDS: QUETIAPINE 100 MG TABLET 300 MG PO (21:34)
[2024-02-15] MEDS: ENOXAPARIN 40 MG/0.4 ML INJ SUBCUT (21:43)
[2024-02-16] VITALS (11 sets, daily range): BP systolic 101–156; BP diastolic 74–96; PULSE 61–94; RESP 18–20; TEMP 36.4–37.1; O2SAT 90–95
[2024-02-16] MEDS: OMEPRAZOLE 20 MG CAPSULE DR PO (06:11)
[2024-02-16] MEDS: SODIUM CHLORIDE 0.9 % (FLUSH) 10 ML SYRINGE 5 ML IVF ×2 (08:23→21:01)
[2024-02-16] MEDS: TAMSULOSIN HCL 0.4 MG CAPSULE PO (08:23)
[2024-02-16] MEDS: dexAMETHasone 2 MG TABLET 6 MG PO (08:23)
[2024-02-16] MEDS: SERTRALINE 100 MG TABLET 200 MG PO (08:23)
[2024-02-16] MEDS: lamoTRIgine 100 MG TABLET 150 MG PO ×2 (10:15→21:00)
--- NOTE | 2024-02-16 10:55 | RESP.RT ---
Patient sitting up in bed, on HFNC over night FiO2 50%, Flow 30 Lpm, Temperature 36 degrees (C), SaO2 97%. Placed patient on NC 4 Lpm, SaO2 93%. BBS clear, good air movement. Right upper lobe has very slight end expiratory wheeze. Patient using Aerobika with good effect, promoting good loose nonproductive cough, able to clear secretions when present. Patient has good clear voice, alert to person, place, time. Will increase NC with activity. HFNC on standby at bed side.
[2024-02-16] MEDS: BARICITINIB 2 MG TAB 4 MG PO (11:51)
--- NOTE | 2024-02-16 15:55 | PM.IMPN1 ---
Progress Note: A&P Assessment and plan (1) Acute hypoxic respiratory failure: Problem details: - 2/2 acute COVID infection, suspect complicated by undiagnosed ESTHER and possibly also undiagnosed COPD - COVID specific therapies per below, RT referral, supplemental oxygen Status: Acute (2) COVID-19: Problem details: - Remdesivir and Dexamethasone initiated in ER on 02/12 - given length of illness and oxygen requirement, also started on Baricitinib as COVID-specific therapy - VBG's have shown no hypercapnia. Continue high-flow nasal cannula - 02/15 Continue current plan of care. Patient is improving. Attempt weaning of oxygen each day with goal of discharging home when able to be off oxygen. Status: Acute (3) Mixed hyperlipidemia: Problem details: - on atorvastatin Status: Chronic (4) Type 2 diabetes mellitus, without long-term current use of insulin: Problem details: - diet controlled, last A1C 6.4 (01/31/24) - anticipate some degree of hyperglycemia while on steroid therapy - accuchecks and SSI, point of care glucoses are within goal, 140s to 180s, continue current regimen Status: Chronic (5) GERD (gastroesophageal reflux disease): Problem details: - continue PPI Status: Chronic (6) BPH (benign prostatic hyperplasia): Problem details: - on Tamsulosin Status: Chronic (7) Major depression, chronic: Problem details: - Dr. King is psychiatrist Status: Chronic Plan - given the appearance of CT scan, I have also considered possible overlying bacterial infection, however patient does not have a fever and white count is within normal limits. Will hold off on antibiotics at this time, but these could be considered if condition worsens or if fever or white count develop. Subjective Time Seen by Provider: 09:10 Date Seen: 02/16/24 Interval history: Huber is very alert today. He feels more awake and less SOB. He says he can really tell he's improving now. Trialing NC today. Exam Narrative: Exam Narrative: General: No acute distress. Awake, alert, oriented. No pallor. No jaundice. Oropharynx: Clear. Mucous membranes moist. Cardiovascular: Regular rate and rhythm. No murmurs, gallops, or rubs. Respiratory: Moderate air movement, expiratory wheezes throughout. No crackles. Abdomen: Bowel sounds present. Soft, nondistended, nontender. Extremities: No pedal edema. Const: Vital Signs, click to edit/add: Vital Signs - 24 hr 02/15/24 17:00 02/15/24 19:00 02/15/24 19:00 Temperature 99.0 F Pulse Rate [Pulse Oximeter] 76 Respiratory Rate 19 Blood Pressure [Le ft Arm] 119/88 Pulse Oximetry 91 Oxygen Delivery Me thod High Flow Nasal Ca nnula Oxygen Flow Rate 30 Fraction of Inspir ed Oxygen 50 50 50 02/15/24 21:00 02/15/24 21:58 02/15/24 21:58 Temperature Pulse Rate [Pulse Oximeter] Respiratory Rate 20 Blood Pressure [Le ft Arm] Pulse Oximetry 98 Oxygen Delivery Me thod High Flow Nasal Ca nnula Oxygen Flow Rate 30 Fraction of Inspir ed Oxygen 50 50 50 02/15/24 21:58 02/16/24 01:00 02/16/24 03:00 Temperature 98.7 F Pulse Rate [Pulse Oximeter] 72 Respiratory Rate 20 Blood Pressure [Le ft Arm] 132/75 Pulse Oximetry 98 Oxygen Delivery Me thod High Flow Nasal Ca nnula Oxygen Flow Rate 30 Fraction of Inspir ed Oxygen 50 50 50 02/16/24 03:00 02/16/24 05:00 02/16/24 07:00 Temperature 97.7 F Pulse Rate [Pulse Oximeter] 65 Respiratory Rate 19 20 Blood Pressure [Le ft Arm] 119/74 Pulse Oximetry 92 93 Oxygen Delivery Me thod High Flow Nasal Ca nnula High Flow Nasal Ca nnula Oxygen Flow Rate 30 30 Fraction of Inspir ed Oxygen 50 50 50 02/16/24 07:00 02/16/24 07:00 02/16/24 07:00 Temperature 98 F Pulse Rate [Pulse Oximeter] 61 61 Respiratory Rate 20 20 Blood Pressure [Le ft Arm] 128/80 Pulse Oximetry 94 Oxygen Delivery Me thod High Flow Nasal Ca nnula Oxygen Flow Rate 30 Fraction of Inspir ed Oxygen 50 50 02/16/24 09:30 02/16/24 09:30 02/16/24 11:00 Temperature 98.7 F Pulse Rate [Pulse Oximeter] 68 Respiratory Rate 20 20 Blood Pressure [Le ft Arm] 101/83 Pulse Oximetry 93 91 Oxygen Delivery Me thod Nasal Cannula High Flow Nasal Ca nnula Oxygen Flow Rate 30 4 30 Fraction of Inspir ed Oxygen 50 50
[2024-02-16] MEDS: ATORVASTATIN CALCIUM 40 MG TABLET 80 MG PO (18:50)
[2024-02-16] MEDS: IPRAT-ALBUT 0.5-2.5 MG/3 ML NEB 1 NEB IH (21:00)
[2024-02-16] MEDS: QUETIAPINE 100 MG TABLET 300 MG PO (21:00)
[2024-02-16] MEDS: ENOXAPARIN 40 MG/0.4 ML INJ SUBCUT (21:01)
[2024-02-17 03:00] VITALS: BP 138/74; PULSE 68; RESP 16; TEMP 36.2; O2SAT 92
--- NOTE | 2024-02-17 06:44 | PC.NURSE ---
End of shift report [id number]: Alert and oriented x 4. Reports SOB at rest and exertion, managed with breathing exercises, PRN duoneb utilized. Patient tolerated oxygen via NC at 4L throughout the night and able to maintain O2 sats >89% throughout the night. Lung sounds clear in bases, slightly diminished and expiratory wheezing in upper lobes that improved after duoneb. Denies any pain this shift. Afebrile throughout the night.
[2024-02-17 08:27] VITALS: BP 119/81; PULSE 81; RESP 18; TEMP 36.4; O2SAT 91
[2024-02-17] MEDS: OMEPRAZOLE 20 MG CAPSULE DR PO (08:30)
[2024-02-17] MEDS: TAMSULOSIN HCL 0.4 MG CAPSULE PO (08:30)
[2024-02-17] MEDS: lamoTRIgine 100 MG TABLET 150 MG PO ×2 (08:30→21:40)
[2024-02-17] MEDS: SODIUM CHLORIDE 0.9 % (FLUSH) 10 ML SYRINGE 5 ML IVF ×2 (08:30→21:41)
[2024-02-17] MEDS: SERTRALINE 100 MG TABLET 200 MG PO (08:30)
[2024-02-17] MEDS: dexAMETHasone 2 MG TABLET 6 MG PO (08:30)
[2024-02-17 11:09] VITALS: BP 136/85; PULSE 79; RESP 18; TEMP 36.4; O2SAT 91
[2024-02-17] MEDS: BARICITINIB 2 MG TAB 4 MG PO (11:12)
--- NOTE | 2024-02-17 14:53 | PM.IMPN1 ---
Progress Note: A&P Assessment and plan (1) Acute hypoxic respiratory failure: Problem details: - 2/2 acute COVID infection, suspect complicated by undiagnosed ESTHER and possibly also undiagnosed COPD - given the appearance of CT scan, I have also considered possible overlying bacterial infection, however patient does not have a fever and white count is within normal limits. Will hold off on antibiotics at this time, but these could be considered if condition worsens or if fever or white count develop. - COVID specific therapies per below, RT referral, supplemental oxygen Status: Acute (2) COVID-19: Problem details: - Remdesivir and Dexamethasone initiated in ER on 02/12 - given length of illness and oxygen requirement, also started on Baricitinib as COVID-specific therapy - VBG's have shown no hypercapnia. Continue high-flow nasal cannula - 02/15 Continue current plan of care. Patient is improving. Attempt weaning of oxygen each day with goal of discharging home when able to be off oxygen. - 02/16 Continues to improve. Continue COVID specific therapies: Oxygen support, 5 days of Remdesivir, dexamethasone, and baricitinib. Attempt to wean off oxygen. Status: Acute (3) Mixed hyperlipidemia: Problem details: - on atorvastatin Status: Chronic (4) Type 2 diabetes mellitus, without long-term current use of insulin: Problem details: - diet controlled, last A1C 6.4 (01/31/24) - anticipate some degree of hyperglycemia while on steroid therapy - accuchecks and SSI, point of care glucoses are within goal, 140s to 180s, continue current regimen Status: Chronic (5) GERD (gastroesophageal reflux disease): Problem details: - continue PPI Status: Chronic (6) BPH (benign prostatic hyperplasia): Problem details: - on Tamsulosin Status: Chronic (7) Major depression, chronic: Problem details: - Dr. King is psychiatrist Status: Chronic Subjective Time Seen by Provider: 07:30 Date Seen: 02/17/24 Interval history: Huber is feeling much better today. Dyspnea improving. Able to be on NC overnight now. Exam Narrative: Exam Narrative: General: No acute distress. Awake, alert, oriented. Oropharynx: Clear. Mucous membranes moist. Cardiovascular: Regular rate and rhythm. No murmurs, gallops, or rubs. Respiratory: Moderate air movement, expiratory wheezes throughout. No crackles. Abdomen: Bowel sounds present. Soft, nondistended, nontender. Extremities: No pedal edema. Const: Vital Signs, click to edit/add: Vital Signs - 24 hr 02/16/24 15:00 02/16/24 15:00 02/16/24 15:00 Temperature 98.7 F Pulse Rate [Pulse Oximeter] 70 86 Respiratory Rate 20 20 20 Blood Pressure [Le ft Arm] 145/96 H Pulse Oximetry 91 92 Oxygen Delivery Me thod Nasal Cannula Nasal Cannula Oxygen Flow Rate 4 4 02/16/24 19:00 02/16/24 23:00 02/16/24 23:00 Temperature 97.5 F L Pulse Rate [Pulse Oximeter] 71 94 Respiratory Rate 18 18 18 Blood Pressure [Le ft Arm] 156/82 H Pulse Oximetry 93 93 Oxygen Delivery Me thod Nasal Cannula Oxygen Flow Rate 4 02/16/24 23:00 02/17/24 03:00 02/17/24 08:27 Temperature 97.5 F L 97.2 F L 97.5 F L Pulse Rate [Pulse Oximeter] 94 68 81 Respiratory Rate 18 16 18 Blood Pressure [Le ft Arm] 142/75 H 138/74 119/81 Pulse Oximetry 90 92 91 Oxygen Delivery Me thod Nasal Cannula Nasal Cannula Nasal Cannula Oxygen Flow Rate 4 4 4 02/17/24 08:27 02/17/24 11:09 Temperature 97.5 F L Pulse Rate [Pulse Oximeter] 79 Respiratory Rate 18 18 Blood Pressure [Le ft Arm] 136/85 Pulse Oximetry 91 91 Oxygen Delivery Me thod Nasal Cannula Nasal Cannula Oxygen Flow Rate 4 4
[2024-02-17 15:00] VITALS: BP 136/84; PULSE 82; PULSE 87; RESP 18; RESP 20; TEMP 36.8; O2SAT 85; O2SAT 92
[2024-02-17] MEDS: IPRAT-ALBUT 0.5-2.5 MG/3 ML NEB 1 NEB IH (16:04)
[2024-02-17] MEDS: INSULIN ASPART 100 UNIT/ML SUBCUT (17:17)
[2024-02-17] MEDS: ATORVASTATIN CALCIUM 40 MG TABLET 80 MG PO (17:17)
[2024-02-17 19:00] VITALS: BP 138/59; PULSE 88; RESP 20; TEMP 36.9; O2SAT 93
[2024-02-17] MEDS: QUETIAPINE 100 MG TABLET 300 MG PO (21:39)
[2024-02-17] MEDS: ACETAMINOPHEN 325 MG TABLET 975 MG PO (21:39)
[2024-02-17] MEDS: ENOXAPARIN 40 MG/0.4 ML INJ SUBCUT (21:40)
--- NOTE | 2024-02-17 23:30 | PC.NURSE ---
Shift Note: Pt continues to move independently throughout his room with difficulty. He is being diligent with aerobika. VS have been WNL aside from SpO2. Pt was found to have flipped his nasal cannula over the top of his nose while sitting in his recliner watching tv. Straddle Bug Driver pointed this out and the pt stated it was unintentional. Pulse ox check showed an SpO2 of 84% and pt stated he felt fine and had been sitting this way for some time. Straddle Bug Driver educated pt on hypoxia and goals for oxygen saturation as well education that he is still requiring oxygen supplementation to meet these goals. Pt stated he was told he would be discharging today and if not wanted to hear it from them not from abstract writer. updated and confirmed with abstract writer goals for discharge criteria. Straddle Bug Driver relayed this information to pt who verbalized understanding. He is currently 91% on 4L/O2 via NC. Duo-neb x1 this evening per pt request.
[2024-02-18] VITALS (7 sets, daily range): BP systolic 103–142; BP diastolic 71–94; PULSE 76–88; RESP 18–24; TEMP 36.4–37.2; O2SAT 88–94
[2024-02-18] MEDS: OMEPRAZOLE 20 MG CAPSULE DR PO (05:45)
--- NOTE | 2024-02-18 06:44 | PC.NURSE ---
Pt alert and oriented x3. Afebrile. Pt denies pain, chest pain and N/V. SOB is noted with exertion. Pt was titrated down from 4L nasal cannula to 2L pt tolerated well maintaining O2 stats of 90% and higher. Pt is up a randa, voiding and tolerating a regular diet.
[2024-02-18] MEDS: dexAMETHasone 2 MG TABLET 6 MG PO (08:27)
[2024-02-18] MEDS: lamoTRIgine 100 MG TABLET 150 MG PO ×2 (08:27→21:11)
[2024-02-18] MEDS: TAMSULOSIN HCL 0.4 MG CAPSULE PO (08:28)
[2024-02-18] MEDS: SODIUM CHLORIDE 0.9 % (FLUSH) 10 ML SYRINGE 5 ML IVF ×2 (08:29→21:12)
[2024-02-18] MEDS: SERTRALINE 100 MG TABLET 200 MG PO (08:29)
[2024-02-18] MEDS: ACETAMINOPHEN 325 MG TABLET 975 MG PO ×3 (09:54→23:09)
[2024-02-18] MEDS: IPRAT-ALBUT 0.5-2.5 MG/3 ML NEB 1 NEB IH ×2 (11:31→21:11)
[2024-02-18] MEDS: BARICITINIB 2 MG TAB 4 MG PO (11:31)
--- NOTE | 2024-02-18 15:40 | P.IMPN_ITS ---
Progress Note: A&P Assessment and plan (1) Acute hypoxic respiratory failure: Problem details: - 2/2 acute COVID infection, suspect complicated by undiagnosed ESTHER and possibly also undiagnosed COPD - given the appearance of CT scan, I have also considered possible overlying bacterial infection, however patient does not have a fever and white count is within normal limits. Will hold off on antibiotics at this time, but these could be considered if condition worsens or if fever or white count develop. - COVID specific therapies per below, continue respiratory therapy, supplemental oxygen Status: Acute (2) COVID-19: Problem details: - Remdesivir and Dexamethasone initiated in ER on 02/12 - given length of illness and oxygen requirement, also started on Baricitinib as COVID-specific therapy - VBG's have shown no hypercapnia. Continue high-flow nasal cannula - 02/15 Continue current plan of care. Patient is improving. Attempt weaning of oxygen each day with goal of discharging home when able to be off oxygen. - 02/16 Continues to improve. Continue COVID specific therapies: Oxygen support, 5 days of Remdesivir, dexamethasone, and baricitinib. Attempt to wean off oxygen. - 02/17 Continues to improve. Continue COVID specific therapies: Oxygen support, 5 days of Remdesivir, dexamethasone, and baricitinib. Attempt to wean off oxygen daily. Status: Acute (3) Mixed hyperlipidemia: Problem details: - on atorvastatin Status: Chronic (4) Type 2 diabetes mellitus, without long-term current use of insulin: Problem details: - diet controlled, last A1C 6.4 (01/31/24) - anticipate some degree of hyperglycemia while on steroid therapy - accuchecks and SSI, point of care glucoses are within goal, mostly 140s to 180s, continue current regimen Status: Chronic (5) GERD (gastroesophageal reflux disease): Problem details: - continue PPI Status: Chronic (6) BPH (benign prostatic hyperplasia): Problem details: - on Tamsulosin Status: Chronic (7) Major depression, chronic: Problem details: - Dr. King is psychiatrist Status: Chronic Subjective Time Seen by Provider: 09:55 Date Seen: 02/18/24 Interval history: Huber was upset this morning because he wants to go home, but he is still needing oxygen. He feels like he's gone backward. When I ask him about that, he said it's because he's satting in the high 80s. I note that he is on 2LNC today and was on 4LNC yesterday. He then spit a dark substance into a cup. I asked him if he was chewing, and he said he was. I told him that that was not good for his body especially while he is here for respiratory issues and that I did not want him chewing while he is here for treatment. He said he would take that under consideration. Exam 2 Narrative: Exam Narrative: General: No acute distress. Awake, alert, oriented. Oropharynx: Clear. Mucous membranes moist. Cardiovascular: Regular rate and rhythm. No murmurs, gallops, or rubs. Respiratory: Moderate air movement, expiratory wheezes throughout. No crackles. Extremities: No pedal edema. Const: Vital Signs, click to edit/add: Vital Signs - 24 hr 02/17/24 19:00 02/18/24 00:00 02/18/24 00:00 Temperature 98.5 F 97.9 F Pulse Rate [Pulse Oximeter] 88 81 Respiratory Rate 20 18 18 Blood Pressure [Le ft Arm] 138/59 L 103/74 Pulse Oximetry 93 94 94 Oxygen Delivery Me thod Nasal Cannula Nasal Cannula Nasal Cannula Oxygen Flow Rate 4 4 4 02/18/24 02:30 02/18/24 08:22 02/18/24 08:22 Temperature 97.8 F 98.7 F Pulse Rate [Pulse Oximeter] 78 79 Respiratory Rate 24 20 20 Blood Pressure [Le ft Arm] 137/94 H 142/85 H Pulse Oximetry 92 88 88 Oxygen Delivery Me thod Nasal Cannula Nasal Cannula Nasal Cannula Oxygen Flow Rate 4 2 2 02/18/24 12:34 Temperature 98.9 F Pulse Rate [Pulse Oximeter] 84 Respiratory Rate 18 Blood Pressure [Le ft Arm] 122/71 Pulse Oximetry 89 Oxygen Delivery Me thod Nasal Cannula Oxygen Flow Rate 2
[2024-02-18] MEDS: NICOTINE 21 MG PATCH 1 PATCH TRANSDERMA (16:53)
[2024-02-18] MEDS: ATORVASTATIN CALCIUM 40 MG TABLET 80 MG PO (17:56)
[2024-02-18] MEDS: INSULIN ASPART 100 UNIT/ML SUBCUT (17:56)
[2024-02-18] MEDS: ENOXAPARIN 40 MG/0.4 ML INJ SUBCUT (21:11)
[2024-02-18] MEDS: QUETIAPINE 100 MG TABLET 300 MG PO (21:11)
--- NOTE | 2024-02-18 23:57 | PC.NURSE ---
End of Shift: Patient pleasant and cooperative. Afebrile. O2 sats 88-90% on 2L NC. Patient denies SOB. C/o headache and PRN Tylenol given x2. Up independently in room. Tolerating regular diet with no nausea.
[2024-02-19 01:19] VITALS: BP 115/70; PULSE 80; RESP 16; TEMP 36.8; O2SAT 90
[2024-02-19 06:45] VITALS: BP 133/80; PULSE 87; RESP 20; TEMP 36.8; O2SAT 87
[2024-02-19 07:00] VITALS: RESP 22; O2SAT 92
[2024-02-19] MEDS: dexAMETHasone 2 MG TABLET 6 MG PO (09:23)
[2024-02-19] MEDS: TAMSULOSIN HCL 0.4 MG CAPSULE PO (09:23)
[2024-02-19] MEDS: SERTRALINE 100 MG TABLET 200 MG PO (09:23)
[2024-02-19] MEDS: lamoTRIgine 100 MG TABLET 150 MG PO (09:24)
[2024-02-19] MEDS: INSULIN ASPART 100 UNIT/ML SUBCUT (09:26)
[2024-02-19] MEDS: SODIUM CHLORIDE 0.9 % (FLUSH) 10 ML SYRINGE 5 ML IVF (09:27)
[2024-02-19] MEDS: IPRAT-ALBUT 0.5-2.5 MG/3 ML NEB 1 NEB IH (09:38)
[2024-02-19 10:14] VITALS: O2SAT 82; O2SAT 89; O2SAT 90
[2024-02-19] MEDS: BARICITINIB 2 MG TAB 4 MG PO (12:53)
--- NOTE | 2024-02-19 15:54 | PC.NURSE ---
shift note: vss stable. pt remains on 1.5-2L pnc to keep sats >92%. LS clr. Reviewed dc instructions and copies sent with pt at mi. Belongings reviewed and sent with pt at mi. Work release given per D.O.
--- NOTE | 2024-02-19 16:18 | P.DS_ITS ---
DS: Providers Provider Date Seen: 02/19/24 Date of admission: 02/13/24 09:08 Primary care physician: Not a Local Provider Admitting Clinician: Sandi Sifuentes MD Consults: 02/13/24 08:25 Consult to Respiratory Therapy [CONS] Urgent Comment: Reason(s) for RT Consult:: Consult Attending Physician on discharge: John Sandy MD Date of Discharge: 02/19/24 DS: Diagnosis Discharge Diagnosis (1) COVID-19: Status: Acute Problem details: - Remdesivir and Dexamethasone initiated in ER on 02/12 - given length of illness and oxygen requirement, also started on Baricitinib as COVID-specific therapy - VBG's have shown no hypercapnia. Continue high-flow nasal cannula - 02/15 Continue current plan of care. Patient is improving. Attempt weaning of oxygen each day with goal of discharging home when able to be off oxygen. - 02/16 Continues to improve. Continue COVID specific therapies: Oxygen support, 5 days of Remdesivir, dexamethasone, and baricitinib. Attempt to wean off oxygen. - 02/17 Continues to improve. Continue COVID specific therapies: Oxygen support, 5 days of Remdesivir, dexamethasone, and baricitinib. Attempt to wean off oxygen daily. (2) Acute hypoxic respiratory failure: Status: Acute Problem details: - 2/2 acute COVID infection, suspect complicated by undiagnosed ESTHER and possibly also undiagnosed COPD - given the appearance of CT scan, I have also considered possible overlying bacterial infection, however patient does not have a fever and white count is within normal limits. Will hold off on antibiotics at this time, but these could be considered if condition worsens or if fever or white count develop. - COVID specific therapies per below, continue respiratory therapy, supplemental oxygen (3) Sleep disorder: Status: Acute Problem details: - likely has undiagnosed obstructive sleep apnea (4) Type 2 diabetes mellitus, without long-term current use of insulin: Status: Chronic Problem details: - diet controlled, last A1C 6.4 (01/31/24) - anticipate some degree of hyperglycemia while on steroid therapy - accuchecks and SSI, point of care glucoses are within goal, mostly 140s to 180s, continue current regimen (5) BPH (benign prostatic hyperplasia): Status: Chronic Problem details: - on Tamsulosin (6) GERD (gastroesophageal reflux disease): Status: Chronic Problem details: - continue PPI (7) Major depression, chronic: Status: Chronic Problem details: - Service is psychiatrist (8) Mixed hyperlipidemia: Status: Chronic Problem details: - on atorvastatin DS: Summary Hospital Course Hospital Course: Patient presented with symptomatic COVID 19. Responded well to intervention administered as specified above. Has required oxygen support and supplementation throughout his hospital stay. Discharge home on oxygen. Status at Discharge Functional status at discharge: independent ambulation Time Spent with Patient Time attestation: Total time spent providing and/or coordinating discharge services: Time spent: Greater than 30 minutes Exam Narrative: Exam Narrative: Requiring oxygen supplementation at 1.5 liters/minute still to maintain oxygen saturations greater than 88% at rest. Lungs for the most part clear with scattered rhonchi. Heart tones with regular rhythm. Abdomen is benign. Moves all 4 extremities. No lower extremity edema. Const: Vital Signs, click to edit/add: Vital Signs - 24 hr 02/18/24 19:00 02/18/24 23:00 02/19/24 01:19 Temperature 97.6 F 97.6 F 98.3 F Pulse Rate [Pulse Oximeter] 78 88 80 Respiratory Rate 18 20 16 Blood Pressure [Le ft Arm] 123/71 107/72 115/70 Pulse Oximetry 89 89 90 Oxygen Delivery Me thod Nasal Cannula Nasal Cannula Nasal Cannula Oxygen Flow Rate 2 2 1 02/19/24 01:19 02/19/24 01:19 02/19/24 06:45 Temperature 98.3 F Pulse Rate [Pulse Oximeter] 87 Respiratory Rate 16 16 20 Blood Pressure [Le ft Arm] 133/80 Pulse Oximetry 90 87 L Oxygen Delivery Me thod Nasal Cannula Nasal Cannula Oxygen Flow Rate 1 1 02/19/24 07:00 Temperature Pulse Rate [Pulse Oximeter] Respiratory Rate 22 Blood Pressure [Le ft Arm] Pulse Oximetry 92 Oxygen Delivery Me thod Nasal Cannula Oxygen Flow Rate 1.5 DS: Data Imaging Chest x-ray: Attestation: I have reviewed the pertinent imaging results. Radiologist's impression: Pattern of lung opacities typically seen with viral or atypical infection. Cardiomegaly without findings of pulmonary edema. CT scan - chest: Attestation: I have reviewed the pertinent imaging results. Radiologist's impression: 1. Limited evaluation of the distal segmental and subsegmental pulmonary arteries due to respiratory motion. No pulmonary embolism identified to the proximal segmental level. 2. Multifocal nodular/tree-in-bud opacities within both lungs favoring bronchiolitis/bronchopneumonia. 3. Right greater than left hilar lymphadenopathy, favored to be reactive. Discharge Plan Discharge Disposition: Home, Self-Care Date of Admission: 02/13/24 09:08 Attending Provider on Discharge: John Sandy Primary Care Provider: Provider,Not a Local Condition: Guarded Anticipated Discharge Date/Time: 02/19/24 14:30 Discharge Medications: Continued lamotrigine 150 mg tablet 150 mg PO BID atorvastatin 80 mg tablet 80 mg PO QPM sertraline 100 mg tablet 200 mg PO DAILY quetiapine 100 mg tablet 300 mg PO QPM tamsulosin 0.4 mg capsule 0.4 mg PO DAILY omeprazole 20 mg tablet,delayed release (DR/EC) 20 mg PO DAILY Discharge Orders: Discharge Order (Routine); Ordered 02/19/24 Ordered By: John Sandy Patient Education: COVID-19 (Coronavirus Disease 2019) (DC), COVID-19: Slow the Coronavirus Spread (DC), Face Coverings (Masks) and COVID-19 (DC) Additional Instructions: 1. Isolation precautions for 2 more days; 2. Follow-up with primary care physician in 1-2 weeks regarding oxygen need, consideration of possible chronic obstructive pulmonary disease; referral for sleep specialist for assessment of possible obstructive sleep apnea; 3. May return to work in 7 days; 4. Oxygen supplementation at directed. Activity Level: Activity as Tolerated Discharge Diet: Heart Healthy (2 gm sodium, low fat) Follow Up Appointments: Provider,Not a Local [Primary Care Provider] - Forms: Work/School Release, [facility] Info Instructions
== END 2024-02-19 14:51 | disposition home or self-care (01) | DRG 177 ==
LOC: ED 08:35 → MEDSURG 08:56
PROVIDERS: Family Medicine; Admitting Provider Family Medicine; Emergency Provider Family Medicine; Visit Provider Family Medicine
DX: U07.1 COVID-19 (principal); J96.01 Acute respiratory failure with hypoxia; E11.65 Type 2 diabetes mellitus with hyperglycemia; G47.33 Obstructive sleep apnea (adult) (pediatric); K21.9 Gastro-esophageal reflux disease without esophagitis; F32.9 Major depressive disorder, single episode, unspecified; N40.0 Benign prostatic hyperplasia without lower urinary tract symptoms; E78.2 Mixed hyperlipidemia; Z72.0 Tobacco use
CPT/HCPCS: 36415; 71046; 71275; 80048; 80053; 80076; 82803; 82962; 85025; 85379; 86140; 87631; 94640; 94664; 94761; 99284; 99285; A9270; J1100; J1650; J7050; Q9967; S4990

== ENCOUNTER 2024-04-11 15:37 | Emergency (ER) | payer OTHER, SELFPAY ==
--- OUTSIDE RECORDS SUMMARY | 2024-04-11 15:39 | XMS_ITS | Referral Summary ---
Author Organization [facility] Address [address] [place] [id number] Care Team Providers Care Heel Trimmer Name Role Phone Evelyn Hernandez DO Primary Care Provider [phone] Allergies Active Allergy Reactions Criticality Noted Date Comments No Known Drug Allergy 09/24/2012 Medications * This document contains information received from the source organization and may not represent a complete record from that organization. Fexofenadine HCl (DANITA PO) Take 1 tablet by mouth daily. Unknown MG per pt. Active azithromycin (ZITHROMAX) 250 MG tablet Two tablets first day, then one tablet daily for four days. 6 tablet 02/18/2017 Active benzonatate (TESSALON) 200 MG capsule Take 1 capsule (200 mg) by mouth 3 times daily as needed for cough 21 capsule 02/18/2017 Active oxyCODONE-aceta minophen (PERCOCET) 5-325 MG per tablet Take 1-2 tablets by mouth every 6 hours as needed for moderate to severe pain 16 tablet 02/18/2017 Active Social History Tobacco Use Types Packs/Day Years Used Date Smoking Tobacco: Former Smokeless Tobacco: Current Chew Alcohol Use Standard Drinks/Week Comments No 0 (1 standard drink = 0.6 oz pur e alcohol) hx abuse Adolescent Education Answer Date Record ed Getting School Help Needed Not on file 11/30 Sex and Gender Information Value Date Recorded Sex Assigned at Not on file Legal Sex Male 12:40 PM CDT Gender Identity Not on file Sexual Orientation Not on file Last Filed Vital Signs Vital Sign Reading Time Taken Comments Blood Pressure 133/87 03/07/2023 10:40 PM [employer] Pulse 66 03/07/2023 10:40 PM [employer] Temperature 36.7 C (98 F) 03/07/2023 10:40 PM [employer] Respiratory Rate 20 03/07/2023 10:40 PM [employer] Oxygen Saturation 98% 03/07/2023 10:40 PM [employer] Inhaled Oxygen Concentration - - Weight 63.5 kg (140 lb) 02/18/2017 12:12 AM [employer] Height 165.1 cm (5' 5) 02/18/2017 12:12 AM [employer] Body Mass Index 23.3 02/18/2017 12:12 AM [employer] Plan of Treatment Not on file Procedures Procedure Name Priority Date/Time Associated Diagnosis Comments BASIC METABOLIC PANEL STAT 03/07/2023 7:17 PM [employer]SING from Last 3 Months or Most Recently Relevant to Health Maintenance Results * (ABNORMAL) Basic metabolic panel (03/07/2023 7:17 PM [employer]) Sodium 140 135 - 145 mmol/L 03/07/2023 7:55 PM [facility] Comment:Reference intervals for this test were updated on 12/04/2022 to more accurately reflect our healthy population. There may be differences in the flagging of prior results with similar values performed with this method. Interpretation of those prior results can be made in the context of the updated reference intervals. Potassium 4.8 3.4 - 5.3 mmol/L 03/07/2023 7:55 PM [facility] Chloride 103 98 - 107 mmol/L 03/07/2023 7:55 PM [facility] Carbon Dioxide (CO2) 26 22 - 29 mmol/L 03/07/2023 7:55 PM [facility] Anion Gap 11 7 - 15 mmol/L 03/07/2023 7:55 PM [facility] Urea Nitrogen 11.8 6.0 - 20.0 mg/dL 03/07/2023 7:55 PM [facility] Creatinine 0.99 0.67 - 1.17 mg/dL 03/07/2023 7:55 PM [facility] GFR Estimate >90 >60 mL/min/1. 73m2 03/07/2023 7:55 PM [facility] Calcium 9.6 8.6 - 10.0 mg/dL 03/07/2023 7:55 PM [facility] Glucose 121(H) 70 - 99 mg/dL 03/07/2023 7:55 PM [facility] Blood BLOOD SPECIMEN / Unknown Venipuncture / Unknown 03/07/2023 7:17 PM [facility] 03/07/2023 7:30 PM [facility]SING Gurvinder Franz MD LAB - BLOOD ORDERABLES Final R esult [facility] [address] [facility] (1st floor, no room number) [place] [address], [facility] [phone] from Last 3 Months or Most Recently Relevant to Health [place] [id number] [place] [id number] [place] [id number] [place] [id number] [facility] Care Teams Heel Trimmer Relationship Specialty Start Date End Date Evelyn Hernandez DO PCP - General Family Practice 02/18/17
--- OUTSIDE RECORDS SUMMARY | 2024-04-11 15:39 | XMS_ITS | Clinical Summary ---
Author Organization [facility] Address [address] [place] [address] Care Team Providers Care Assistant Grocery Name Role Phone Unassigned, Provider Primary Care Provider Unava ilable Source Comments You are receiving this document as you are listed as the primary care provider,follow-up provider, or the patient has been referred to you for consultation.This is in compliance with the Medicare and[facility] EHR Incentive Program,which states Providers who transition their patient to another setting of careor provider of care or refers their patient to another provider of care shouldprovide summary care record for each transition of care or referral. [facility] Allerg[facility] Active Allergy Reactions Criticality Noted Date Comments Metaxalone Nausea And Vomiting High 09/07/2019 Medications Medication Sig Dispensed Refills Start Date End Date Status lamoTRIgine (LAMICTAL) 150 MG tablet Take 150 mg by mouth two times a day. 08/10/2019 Active atorvastatin (LIPITOR) 80 MG tablet TAKE 1 TABLET BY MOUTH EVERYDAY AT BEDTIME 08/10/2019 Active QUEtiapine (SEROQUEL) 100 MG tablet TAKE 3 TABLETS BY MOUTH EVERY DAY AT BEDTIME 08/13/2019 Active sertraline (ZOLOFT) 100 MG tablet TAKE 2 TABLETS BY MOUTH EVERY DAY IN THE MORNING 08/10/2019 Active cyclobenzaprine (FLEXERIL) 5 MG tablet Take one or two tablets, 3 times daily as needed for back and leg discomfort. 30 Tablet 09/07/2019 Active Active Problems No known active problems Social History Tobacco Use Types Packs/Day Years Used Date Smoking Tobacco: Never Smokeless Tobacco: Current Chew Alcohol Use Standard Drinks/Week Comments Yes 5 (1 standard drink = 0.6 oz pur e alcohol) Sex and Gender Information Value Date Recorded Sex Assigned at Not on file Gender Identity Not on file Sexual Orientation Not on file Last Filed Vital Signs Vital Sign Reading Time Taken Comments Blood Pressure 142/83 09/07/2019 10:33 AM CDT Pulse 85 09/07/2019 10:33 AM CDT Temperature 37.2 C (98.9 F) 09/07/2019 10:33 AM CDT Respiratory Rate 22 09/07/2019 10:33 AM CDT Oxygen Saturation 98% 09/07/2019 10:33 AM CDT Inhaled Oxygen Concentration - - Weight - - Height - - Body Mass Index - - Plan of Treatment Health Maintenance Due Date Last Done Comments Colon Cancer Screening Plan Due 1977 Hep C Screening (Preventive Services) 1977 HIV Screening (Preventive Services) 1993 Adult Preventive Visit 1995 10/26/1994 DTaP/Tdap/Td (1 - Tdap) 01/17/1996 HepB (1) 01/17/1996 Cholesterol 01/17/2012 COVID-19 Vaccine ( - 2023-2 5 season) 2023 Influenza (#1) 2023 Zoster/Shingles (1 of 2) 2027 HepA Aged Out No longer eligi ble based on patient's age to complete this topic Hib Aged Out No longer eligi ble based on patient's age to complete this topic IPV (Polio) Aged Out No longer eligi ble based on patient's age to complete this topic MCV4 Aged Out No longer eligi ble based on patient's age to complete this topic Pneumococcal Aged Out No longer eligi ble based on patient's age to complete this topic Care Teams Assistant Grocery Relationship Specialty Start Date End Date Unassigned, Provider [address] [place] [id number] PCP - General 05/18/00
--- OUTSIDE RECORDS SUMMARY | 2024-04-11 15:39 | XMS_ITS | Clinical Summary ---
Author Organization [facility] Address [place], [place] [address] Care Team Providers Care Commercial Analyst Name Role Phone Mary Evelyn Williamsone Primary Care Provider [phone] Allergies Active Allergy Reactions Criticality Noted Date Comments Metaxalone Nausea And Vomiting High 09/07/2019 Medications loratadine (CLARITIN) 10 mg tablet Take 1 tablet by mouth once daily. 0 6 Active omega-3 fatty acids (FISH OIL CONCENTRATE) capIndications:Hi gh triglycerides Take 2 capsules by mouth once daily. 60 capsule 7 Active cyclobenzaprine (FLEXERIL) 10 mg tabletIndications :Acute midline low back pain without sciatica Take 1 Tablet (10 mg) by mouth 3 times daily if needed for Muscle Spasm. 30 Tablet 2 Active mometasone (NASONEX) (50 mcg each actuation) nasal sprayIndications: Allergic rhinitis, unspecified seasonality, unspecified trigger Inhale 2 Sprays to both nostrils once daily. 17 g 2 3 Active omeprazole (PRILOSEC) 20 mg Delayed-Release capsuleIndication s:Atypical chest pain,Gastric reflux Take 20mg (one capsule) oral twice daily 4 Active tamsulosin (FLOMAX) 0.4 mg capsuleIndication s:Benign prostatic hyperplasia with nocturia Take 1 Capsule (0.4 mg) by mouth once daily after a meal. 100 Capsule 3 4 Active atorvastatin (LIPITOR) 80 mg tabletIndications :Mixed dyslipidemia,High triglycerides TAKE 1 TABLET BY MOUTH EVERYDAY AT BEDTIME. 100 Tablet 3 4 Active lamoTRIgine 150 mg tabletIndications :Major depressive disorder in full remission, unspecified whether recurrent (HC) Take 1 Tablet (150 mg) by mouth two times daily. 60 Tablet 5 5 Active QUEtiapine (SEROQUEL) 100 mg tabletIndications :Anxiety and depression Take 3 Tablets (300 mg) by mouth at bedtime. 90 Tablet 5 5 Active sertraline (ZOLOFT) 100 mg tabletIndications :Major depressive disorder in full remission, unspecified whether recurrent (HC) Take 2 Tablets (200 mg) by mouth once daily in the morning. 60 Tablet 5 5 Active QUEtiapine (SEROQUEL) 100 mg tabletIndications :Anxiety and depression Take 3 Tablets (300 mg) by mouth at bedtime. 90 Tablet 4 03/31/19 25 Discontin ued(Reord er (E-cancel not sent)) sertraline (ZOLOFT) 100 mg tabletIndications :Anxiety and depression Take 2 Tablets (200 mg) by mouth once daily in the morning. 60 Tablet 4 03/31/19 25 Discontin ued(Reord er (E-cancel not sent)) lamoTRIgine 150 mg tabletIndications :Anxiety and depression Take 1 Tablet (150 mg) by mouth two times daily. 60 Tablet 5 03/31/19 25 Discontin ued(Reord er (E-cancel not sent)) Hospital, Clinic, or Other Facility Administered Medication Ordered Dose Route Frequency Start Date End Date Status albuterol 0.083% (2.5 mg/3 mL) neb solution 2.5 mgIndications:Chronic respiratory failure with hypoxia (HC) 2.5 mg NEB ONE TIME 03/27/2024 03/27/2024 Ended Active Problems Problem Noted Date Diagnosed Date Chronic respiratory failure with hypoxia 025 Chewing tobacco dependence 02/02/2024 Type 2 diabetes mellitus wit hout complication, without long-term current use of insulin 12/30/2023 Depression, major, in remission 12/04/2023 Generalized anxiety disorder 12/04/2023 BPH without urinary obstruction 04/04/2022 Overweight 03/01/2021 High triglycerides 06/30/2015 Mixed dyslipidemia 06/30/2015 Marijuana use, continuous 03/23/2014 Anxiety and depression 01/08/2014 Insomnia 01/08/2014 Lower extremity weakness 01/04/2014 Balance disorder 01/04/2014 Kidney stone 01/04/2014 History of alcohol abuse 01/04/2014 History of drug abuse 01/04/2014 Resolved Problems Problem Noted Date Diagnosed Date Resolved Date Prediabetes 03/01/2021 01/31/2024 Encounters Date Type Department Care Team Description 03/31/2024 9:30 AM ANIMAL COP Telemedicine [facility] [address] [place] [address] Soo Corrales, CIPRIANO Medication Management; Telehealth ([place]) 03/30/2024 Travel 03/27/2024 3:00 PM ANIMAL COP Procedure Only [facility] [address] [place] [address] Testing (Spirometry/O2 testing ) 03/27/2024 Travel 03/23/2024 Telephone [facility] [address] [place] [address] Soo Corrales, CIPRIANO Appointment Reminder (Adult intake call) 03/19/2024 Orders Only [facility] Scanner 1 scan: (1-Ord) INCOMING RECORDS-CT, [facility], 03/19/2024 03/19/2024 Orders Only [facility] Scanner 1 scan: (1-Ord) INCOMING RECORDS-LABS, [facility], 03/19/2024 03/18/2024 4:05 PM ANIMAL COP Ancillary Procedure [facility] [place] [address] [place] [address] 03/18/2024 3:20 PM ANIMAL COP Office Visit [facility] [place] [address] [place] [address] Evelyn Hernandez DO Sleep Follow-up; Follow Up (oxygen follow up) 03/17/2024 Travel 03/12/2024 Refill [facility] [address] [facility] [address] [place] [address] Julieth Anglin MD Refill Request (Lamotrigine) 03/12/2024 Telephone [facility] [address] [place] [address] Evelyn Hernandez, Other 03/06/2024 Refill [facility] [address] [facility] [address] [place] [address] Service, Viviane Ramos MD Refill Request (Quetiapine 100mg tablets; Sertraline 100mg tabs) 03/02/2024 2:40 PM ANIMAL COP Office Visit [facility] [place] [address] [place] [address] Kadi Borja PA Sleep Consult; Follow Up (Covid ) 03/02/2024 Travel 01/31/2024 3:30 PM ANIMAL COP Office Visit [facility] [place] [address] [place] [address] Evelyn Hernandez DO Diabetes (follow up) 01/31/2024 Travel 01/28/2024 Travel from Last 3 Months Immunizations Name Administration Dates Next Due COVID-19 vaccine (Moderna 50 mcg/0.5mL) 12YO+ BIVALENT PF, MDV 04/04/2022 COVID-19 vaccine (Moderna Sylvester ac 50mcg/0.25mL) PF, MDV 03/01/2021 Tdap 03/18/2024,03/22/2014 Family History Medical History Relation Name Comments Diabetes Brother Emphysema Father Emphysema Maternal Grandmother Postmenopausal breast cancer Maternal Grandmother Genetic Other Family history of: father, gma- emphysema ~~Breast Cancer: No~~Ovarian Cancer: No~~Colon CA: No~~Prostate/Testicular CA: No~~Osteoporosis: No~~Early CAD: No~~DM: No~~Thyroid Dz: No Postmenopausal breast cancer Sister Relation Name Status Comments Brother Father Maternal Grandmother Other Sister Social History Tobacco Use Types Packs/Day Years Used Date Smoking Tobacco: Former Cigarettes 0.5 8 0 11/08/2001 - 11/08/2009 Smokeless Tobacco: Current Chew Tobacco Cessation:Ready to Q uit: Not Asked; Counseling Given: Not Answered Comments:1 tin ever 3 days, 1- Alcohol Use Standard Drinks/Week Comments Yes 1 (1 standard drink = 0.6 oz pur e alcohol) minimal [facility] Utilities Answer Date Recorded Do you have trouble paying f or utilities (for example, heat, electricity, water, phone)? Yes 03/18/2023 PHQ-2 Answer Date Recorded PHQ-2 TOTAL SCORE 0 03/30/2024 Social Connections Answer Date Recorded Do you often feel lonely or isolated from those around you? 0 03/18/2023 Alcohol Use Answer Date Recorded How often do you have a drink containing alcohol ? 2 03/12/2023 Average Number of Drinks Not on file Frequency of Binge Drinking Not on file 04/2023 Financial Resource Strain Answer Date R ecorded Difficulty of Paying Living Expenses 3 03/18/2023 Difficulty of Paying Living Expenses Not on file 03/18/2023 Food Insecurity Answer Date Recorded Do you worry your food will run out before you are able to buy more? 1 03/18/2023 Transportation Needs Answer Date Record ed Does lack of transportation keep you from medica l appointments? 1 03/18/2023 Does lack of transportation keep you from work, meetings or getting things that you need? 1 03/18/2023 Housing Stability Answer Date Recorded What is your housing situation today? 1 03/18/2023 Sex and Gender Information Value Date Recorded Sex Assigned at Not on file Legal Sex Male 5:24 AM ANIMAL COP Gender Identity Not on file Sexual Orientation Not on file Obstetrics History Last Filed Vital Signs Vital Sign Reading Time Taken Comments Blood Pressure 138/78 03/18/2024 3:52 PM ANIMAL COP Pulse 88 03/18/2024 3:27 PM ANIMAL COP Temperature 36.3 C (97.4 F) 06/13/2022 4:14 PM CDT Respiratory Rate 18 06/19/2022 9:45 AM CDT Oxygen Saturation 94% 03/27/2024 3:53 PM ANIMAL COP Inhaled Oxygen Concentration - - Weight 92.5 kg (204 lb) 03/27/2024 3:01 PM ANIMAL COP Height 172 cm (5' 7.72) 03/02/2024 2:46 PM ANIMAL COP Body Mass Index 31.28 03/02/2024 2:46 PM ANIMAL COP Plan of Treatment Upcoming Encounters Date Type Department Care Team (Late st Contact Info) Description 05/01/2024 8:15 AM ANIMAL COP Office Visit [facility] [place] [address] [place], [place] [id number] [place] [address] [address] [place], [place] [phone] 05/27/2024 2:00 PM CDT Telemedicine [facility] [address] [place] [address] Cristel Crawford PA [address] [place] [address] Health Maintenance Due Date Last Done Comments Hepatitis B series for Diabe brian (1 of 3 - 19+ 3-dose series) 01/17/1996 Pneumococcal series for age 6-49 (1 of 2 - PCV) 01/17/1996 COVID-19 vaccine series ( season) 2023 04/04/2022, 03/01/2021, 06/11/2020, Additional history exists Influenza for age 9-49 11/10/2023 BMI (ht and wt on same day) for age 18+ 03/02/2025 03/02/2024, 03/18/2023, 02/15/2023, Additional history exists Depression screening for age 12+ 03/31/2025 03/31/2024, 03/30/2024, 12/04/2023, Additional history exists Fecal testing sDNA-FIT ([place] guard) for age 45-75 04/16/2025 04/16/2022 Lipids for age 45-75 12/22/2028 12/23/2023, 04/04/2022, 03/01/2021, Additional history exists Tetanus booster 03/18/2034 03/18/2024, 03/11, 10/19/2007 (Completed outside of [facility]) HIV for age 15-65 Completed 09/22/2014 Hepatitis C screening for ag e 18-79 Completed 09/22/2014 Tdap Completed 03/18/2024, 03/22/2014 Procedures Procedure Name Priority Date/Time Associated Diagnosis Comments OK BRNCDILAT RSPSE SPMTRY PRE&POST-BRNCDILAT ADMN Routine 03/27/2024 12:00 AM ANIMAL COP Chronic respiratory failure with hypoxia (HC) SCAN CORRESP-LABORATORY RESULTS 03/19/2024 12:00 AM ANIMAL COP SCAN CORRESP-IMAGING 03/19/2024 12:00 AM ANIMAL COP XR CHEST 2 VIEWS PA AND LATERAL Routine 03/18/2024 4:15 PM ANIMAL COP Chronic respiratory failure with hypoxia (HC) CBC WITH AUTO DIFFERENTIAL Routine 03/18/2024 4:14 PM ANIMAL COP Chronic respiratory failure with hypoxia (HC) COMP METABOLIC PANEL Routine 03/18/2024 4:14 PM ANIMAL COP Chronic respiratory failure with hypoxia (HC) URINE ALBUMIN TO CREATININE RATIO, RANDOM Routine 01/31/2024 4:19 PM ANIMAL COP Type 2 diabetes mellitus without complication, without long-term current use of insulin (HC) HEMOGLOBIN A1C Routine 01/31/2024 4:19 PM ANIMAL COP Type 2 diabetes mellitus without complication, without long-term current use of insulin (HC) LIPID PANEL W REFLEX MEASURED LDL Routine 12/23/2023 3:26 PM CDT Mixed dyslipidemia SDNA-FIT EXTERNAL (COLOGUARD) Routine 04/16/2022 10:30 PM ANIMAL COP Screening for colon cancer ANTI HIV 1/2 Routine 09/22/2014 4:51 PM CDT Exposure to potentially hazardous body fluids ANTI HCV Routine 09/22/2014 4:51 PM CDT Exposure to potentially hazardous body fluids from Last 3 Months or Most Recently Relevant to Health Maintenance Results * OK BRONCHOSPASM RESP DILATOR PRE/POST ADMIN (03/27/2024 12:00 AM ANIMAL COP) us Evelyn Hernandez DO PB - RESPIRATORY SYSTEM SER VICES Final Result * SCAN CORRESP-LABORATORY RESULTS (03/19/2024 12:00 AM ANIMAL COP) us Scanner OTHER Final Result * SCAN CORRESP-IMAGING (03/19/2024 12:00 AM ANIMAL COP) Anatomical Region Laterality Modality Other us Scanner OTHER Final Result * XR CHEST 2 VIEWS PA AND LATERAL (03/18/2024 4:15 PM ANIMAL COP) Anatomical Region Laterality Modality CHEST, THORAX, Lung, HEART Compu anatoly Radiography 03/18/2024 4:20 PM ANIMAL COP Impressions 03/18/2024 4:20 PM ANIMAL COP No acute findings. Dictated by Guero Ramos MD @ 03/18/2024 4:20:54 PM (Electronically Signed) Narrative 03/18/2024 4:20 PM ANIMAL COP For Patients: As a result of the Cures Act, medical imaging exams and procedure reports are released immediately into your electronic medical record. You may view this report before your referring provider. If you have questions, please contact your health care provider. INDICATION: Chronic respiratory failure with hypoxia TECHNIQUE: Chest 2 views COMPARISON: 06/13/2022 FINDINGS: Cardiovascular and mediastinum: Heart size and vasculature are normal in caliber and appearance. Lungs and pleural spaces: Lungs are clear. No sign of infiltrate or mass. No sign of pleural effusion. No pneumothorax. Bones and soft tissues: No significant findings. Procedure Note Guero Ramos MD - 03/18/2024 For Patients: As a result of the Cures Act, medical imagingexams and procedure reports are released immediately into your electronicmedical record. You may view this report before your referring provider.If you have questions, please contact your health care provider. INDICATION: Chronic respiratory failure with hypoxia TECHNIQUE: Chest 2 views COMPARISON: 06/13/2022 FINDINGS: Cardiovascular and mediastinum: Heart size and vasculature are normal incaliber and appearance. Lungs and pleural spaces: Lungs are clear. No sign of infiltrate ormass. No sign of pleural effusion. No pneumothorax. Bones and soft tissues: No significant findings. IMPRESSION: No acute findings. Dictated by Guero Ramos MD @ 03/18/2024 4:20:54 PM (Electronically Signed) Evelyn Hernandez DO GENERAL IMAGING Final Resul t * (ABNORMAL) CBC AND DIFFERENTIAL (03/18/2024 4:14 PM ANIMAL COP) WHITE BLOOD CELL COUNT 7.1 3.8 - 10.8 Thousand/u L [facility] RED BLOOD CELL COUNT 4.27 4.20 - 5.80 Million/uL [facility] HEMOGLOBIN 12.9(L) 13.2 - 17.1 g/dL [facility] HEMATOCRIT 40.6 38.5 - 50.0 % [facility] MCV 95.1 80.0 - 100.0 fL [facility] MCH 30.2 27.0 - 33.0 pg [facility] MCHC 31.8(L) 32.0 - 36.0 g/dL [facility] Comment: For adults, a slight decrease in the calculated MCHC value (in the range of 30 to 32 g/dL) is most likely not clinically significant; however, it should be interpreted with caution in correlation with other red cell parameters and the patient's clinical condition. RDW 13.0 11.0 - 15.0 % [facility] PLATELET COUNT 209 140 - 400 Thousand/u L [facility] MPV 11.2 7.5 - 12.5 fL [facility] ABSOLUTE NEUTROPHILS 4,239 1,500 - 7,800 cells/uL [facility] ABSOLUTE LYMPHOCYTES 1,860 850 - 3,900 cells/uL [facility] ABSOLUTE MONOCYTES 540 200 - 950 cells/uL [facility] ABSOLUTE EOSINOPHILS 391 15 - 500 cells/uL [facility] ABSOLUTE BASOPHILS 71 0 - 200 cells/uL [facility] NEUTROPHILS 59.7 % [facility] LYMPHOCYTES 26.2 % [facility] MONOCYTES 7.6 % [facility] EOSINOPHILS 5.5 % [facility] BASOPHILS 1.0 % [facility] Blood BLOOD SPECIMEN / Unknown 03/18/2024 4:14 PM ANIMAL COP 03/18/2024 4:14 PM ANIMAL COP us Evelyn Hernandez DO HEMATOLOGY Final Resul t [facility] [address] [place] [address], [facility] [address] [place] [address] * (ABNORMAL) COMP METABOLIC PANEL (03/18/2024 4:14 PM ANIMAL COP) GLUCOSE 109(H) 65 - 99 mg/dL [facility] Comment: Fasting reference interval For someone without known diabetes, a glucose value between 100 and 125 mg/dL is consistent with prediabetes and should be confirmed with a follow-up test. UREA NITROGEN (BUN) 13 7 - 25 mg/dL [facility] CREATININE 0.97 0.60 - 1.29 mg/dL [facility] EGFR 97 > OR = 60 mL/min/1. 73m2 [facility] BUN/CREATININE RATIO SEE NOTE: 6 - 22 (calc) [facility] Comment: Not Reported: BUN and Creatinine are within reference range. SODIUM 140 135 - 146 mmol/L [facility] POTASSIUM 4.4 3.5 - 5.3 mmol/L [facility] CHLORIDE 98 98 - 110 mmol/L [facility] CARBON DIOXIDE 34(H) 20 - 32 mmol/L [facility] CALCIUM 10.0 8.6 - 10.3 mg/dL [facility] PROTEIN, TOTAL 7.5 6.1 - 8.1 g/dL [facility] ALBUMIN 4.5 3.6 - 5.1 g/dL [facility] GLOBULIN 3.0 1.9 - 3.7 g/dL (calc) [facility] ALBUMIN/GLOBULIN RATIO 1.5 1.0 - 2.5 (calc) [facility] BILIRUBIN, TOTAL 0.3 0.2 - 1.2 mg/dL [facility] ALKALINE PHOSPHATASE 86 36 - 130 U/L [facility] AST 21 10 - 40 U/L [facility] ALT 26 9 - 46 U/L [facility] Blood BLOOD SPECIMEN / Unknown 03/18/2024 4:14 PM ANIMAL COP 03/18/2024 4:14 PM ANIMAL COP Eevlyn Hernandez DO CHEMISTRY Final Resul t [facility] [address] [place] [address], [facility] [address] [place] [address] * (ABNORMAL) HEMOGLOBIN A1C (01/31/2024 4:19 PM ANIMAL COP) HEMOGLOBIN A1C 6.4(H) <5.7 % of total Hgb [facility] Comment: For someone without known diabetes, a hemoglobin A1c value between 5.7% and 6.4% is consistent with prediabetes and should be confirmed with a follow-up test. For someone with known diabetes, a value <7% indicates that their diabetes is well controlled. A1c targets should be individualized based on duration of diabetes, age, comorbid conditions, and other considerations. This assay result is consistent with an increased risk of diabetes. Currently, no consensus exists regarding use of hemoglobin A1c for diagnosis of diabetes for children. Blood BLOOD SPECIMEN / Unknown 01/31/2024 4:19 PM ANIMAL COP 01/31/2024 4:19 PM ANIMAL COP Evelyn Hernandez DO CHEMISTRY Final Resul t Performing Organization Address [facility] Co de Phone Number [facility] [address] [place] [address], [facility] [address] [place] [address] * URINE ALBUMIN TO CREATININE RATIO, RANDOM (01/31/2024 4:19 PM ANIMAL COP) CREATININE, RANDOM URINE 132 20 - 320 mg/dL [facility] ALBUMIN, URINE 0.8 See Note: mg/dL [facility] Comment: Reference Range: Reference Range Not established ALBUMIN/CREATININE RATIO, RANDOM URINE 6 <30 mg/g creat [facility] Comment: The ADA defines abnormalities in albumin excretion as follows: Albuminuria Category Result (mg/g creatinine) Normal to Mildly increased <30 Moderately increased 30-299 Severely increased > OR = 300 The ADA recommends that at least two of three specimens collected within a 3-6 month period be abnormal before considering a patient to be within a diagnostic category. Urine URINE SPECIMEN / Unknown 01/31/2024 4:19 PM ANIMAL COP 01/31/2024 4:19 PM ANIMAL COP Evelyn Guerra Mary DO URINE Final Resul t Performing Organization Address [facility] Co de Phone Number [facility] [address] [place] [address], [facility] [address] [place] [address] * (ABNORMAL) LIPID PANEL W REFLEX MEASURED LDL (12/23/2023 3:26 PM CDT) CHOLESTEROL, TOTAL 204(H) <200 mg/dL [facility] HDL CHOLESTEROL 40 > OR = 40 mg/dL [facility] TRIGLYCERIDES 445(H) <150 mg/dL [facility] Comment: If a non-fasting specimen was collected, consider repeat triglyceride testing on a fasting specimen if clinically indicated. Jimi et al. J. of Clin. Lipidol. 2015;9:129-169. LDL-CHOLESTEROL [facility] Comment: LDL cholesterol not calculated. Triglyceride levels greater than 400 mg/dL invalidate calculated LDL results. Reference range: <100 Desirable range <100 mg/dL for primary prevention; <70 mg/dL for patients with CHD or diabetic patients with > or = 2 CHD risk factors. LDL-C is now calculated using the Darinel-Yousif calculation, which is a validated novel method providing better accuracy than the Friedewald equation in the estimation of LDL-C. Darinel STARKEY et al. JERRY. 2013;310(19): 3610-6815 (http://education.WorldTV/faq/NYR732) CHOL/HDLC RATIO 5.1(H) <5.0 (calc) [facility] NON HDL CHOLESTEROL 164(H) <130 mg/dL (calc) [facility] Comment: For patients with diabetes plus 1 major ASCVD risk factor, treating to a non-HDL-C goal of <100 mg/dL (LDL-C of <70 mg/dL) is considered a therapeutic option. Blood BLOOD SPECIMEN / Unknown 12/23/2023 3:26 PM CDT 12/23/2023 3:26 PM CDT Evelyn Hernandez DO CHEMISTRY Final Resul t [facility] [address] [place] [address], [facility] [address] [place] [address] * SDNA-FIT EXTERNAL (COLOGUARD) (04/16/2022 10:30 PM ANIMAL COP) NONINV COLON CA DNA+OCC BLD SCRN STL-IMP Negative Negative 04/25/2022 1:32 AM ANIMAL COP [employer] (CLIA #:[id number]) Comment: NEGATIVE TEST RESULT. A negative Cologuard result indicates a low likelihood that a colorectal cancer (CRC) or advanced adenoma (adenomatous polyps with more advanced pre-malignant features) is present. The chance that a person with a negative Cologuard test has a colorectal cancer is less than 1 in 1500 (negative predictive value >99.9%) or has an advanced adenoma is less than 5.3% (negative predictive value 94.7%). These data are based on a prospective cross-sectional study of 10,000 individuals at average risk for colorectal cancer who were screened with both Cologuard and colonoscopy. (Williams Pat et al, N Engl J Med 2014;370(14):4889-8407) The normal value (reference range) for this assay is negative. COLOGUARD RE-SCREENING RECOMMENDATION: Periodic colorectal cancer screening is an important part of preventive healthcare for asymptomatic individuals at average risk for colorectal cancer. Following a negative Cologuard result, the [employer] Cancer Society and U.S. Multi-Society Task Force screening guidelines recommend a Cologuard re-screening interval of 3 years. References: [place] Cancer Society Guideline for Colorectal Cancer Screening: https://www.cancer.org/cancer/awsth-wcawry-rufedm/blbdortbb-gwrgtnlwd-shujfez/ac s-rec ommendations.html.; Guillermo DK, Faiza CR, Dank MacarioK, Colorectal Cancer Screening: Recommendations for Physicians and Patients from the U.S. Multi-Society Task Force on Colorectal Cancer Screening , Am J Gastroenterology 2017; 112:3361-6917. TEST DESCRIPTION: Composite algorithmic analysis of stool DNA-biomarkers with hemoglobin immunoassay. Quantitative values of individual biomarkers are not reportable and are not associated with individual biomarker result reference ranges. Cologuard is intended for colorectal cancer screening of adults of either sex, 45 years or older, who are at average-risk for colorectal cancer (CRC). Cologuard has been approved for use by the U.S. FDA. The performance of Cologuard was established in a cross sectional study of average-risk adults aged 50-84. Cologuard performance in patients ages 45 to 49 years was estimated by sub-group analysis of near-age groups. Colonoscopies performed for a positive result may find as the most clinically significant lesion: colorectal cancer [4.0%], advanced adenoma (including sessile serrated polyps greater than or equal to 1cm diameter) [20%] or non- advanced adenoma [31%]; or no colorectal neoplasia [45%]. These estimates are derived from a prospective cross-sectional screening study of 10,000 individuals at average risk for colorectal cancer who were screened with both Cologuard and colonoscopy. (Williams Tao al, N Engl J Med 2014;370(14):9790-8275.) Cologuard may produce a false negative or false positive result (no colorectal cancer or precancerous polyp present at colonoscopy follow up). A negative Cologuard test result does not guarantee the absence of CRC or advanced adenoma (pre-cancer). The current Cologuard screening interval is every 3 years. ([employer] and U.S. Multi-Society Task Force). Cologuard performance data in a 10,000 patient pivotal study using colonoscopy as the reference method can be accessed at the following location: www.[employer]/results. Additional description of the Cologuard test process, warnings and precautions can be found at www.cologuard.com. Stool specimen (specimen) (Rectum) 04/16/2022 10:30 PM ANIMAL COP 04/18/2022 12:39 PM ANIMAL COP us Evelyn Hernandez DO URINE Final Resul t [employer] (CLIA #:[id number]) Cheo Palmer . [place] [id number], * ANTI HCV (09/22/2014 4:51 PM CDT) HEPATITIS C ANTIBODY Non-Reacti ve Non-Reacti ve 09/23/2014 5:26 PM CDT [facility] Blood specimen (specimen) BLOOD SPECIMEN / Unknown Venipuncture / Unknown 09/22/2014 4:51 PM CDT 09/22/2014 4:52 PM CDT Narrative [facility] - 09/23/2014 5:26 PM CDT Antibodies to HCV not detected; does not exclude the possibility of exposure to HCV. us Evelyn Hernandez DO SEND OUTS Final Resul t [facility] [address] [place] [address], * ANTI HIV 1/2 (09/22/2014 4:51 PM CDT) HIV-1/HIV-2 ANTIBODY Non-Reacti ve Non-Reacti ve 09/23/2014 4:18 PM CDT [facility] Blood specimen (specimen) BLOOD SPECIMEN / Unknown Venipuncture / Unknown 09/22/2014 4:51 PM CDT 09/22/2014 4:52 PM CDT Narrative [facility] - 09/23/2014 4:18 PM CDT HIV-1 p24 and HIV-1/HIV-2 Ab not detected us Evelyn Hernandez DO SEND OUTS Final Resul t Performing Organization Address [facility] Co de Phone Number [facility] [address] [place] [address], from Last 3 Months or Most Recently Relevant to [place] [id number] [facility] Care Teams Commercial Analyst Relationship Specialty [place] [id number] [address] [id number] PCP - General Family Practice 01/25/14
--- OUTSIDE RECORDS SUMMARY | 2024-04-11 15:39 | XMS_ITS | Clinical Summary ---
Author Organization [place] Address [address] [place] [address] Care Team Providers Care Baseball Player Name Role Phone Evelyn Hernandez DO Primary Care Provider [phone] Allergies Active Allergy Reactions Criticality Noted Date [...] Comments Blood Pressure 133/87 03/07/2023 10:40 PM SPORTS WRITER Pulse 66 03/07/2023 10:40 PM SPORTS WRITER Temperature 36.7 C (98 F) 03/07/2023 10:40 PM SPORTS WRITER Respiratory Rate 20 03/07/2023 10:40 PM SPORTS WRITER Oxygen Saturation 98% 03/07/2023 10:40 PM SPORTS WRITER Inhaled Oxygen Concentration - - Weight 63.5 kg (140 lb) 02/18/2017 12:12 AM SPORTS WRITER Height 165.1 cm (5' 5) 02/18/2017 12:12 AM SPORTS WRITER Body Mass Index 23.3 02/18/2017 12:12 AM SPORTS WRITER Plan of Treatment Health Maintenance Due Date Last Done Comments ADVANCE CARE PLANNING 1977 ANNUAL REVIEW OF HM ORDERS [address] CT COLONOGRAPHY 1977 FIT 1977 FLEX SIG 1977 COLONOSCOPY 1987 HIV SCREENING 01/17/1992 HEPATITIS C SCREENING 1995 HEPATITIS B IMMUNIZATION (1 of 3 - 19+ 3-dose series) 01/17/1996 LIPID 2017 YEARLY PREVENTIVE VISIT 03/01/2022 03/01/2021, 10/26 COVID-19 Vaccine ( season) 2023 04/04/2022, 03/01/2021, 06/11/2020, Additional history exists INFLUENZA VACCINE (#1) 2023 PHQ-2 (once per calendar year) 2024 DTAP/TDAP/TD IMMUNIZATION (4 - Td or Tdap) 03/22/2024 03/22/2014, 10/19/2007, 12/06/2006 COLORECTAL CANCER SCREENING 04/16/2025 sDNA (Cologuard) 04/16/2025 04/16/2022 GLUCOSE 03/07/2026 03/07/2023, 09/20/2021 RSV VACCINE (1 - 1-dose 75+ series) 01/17/2052 HPV IMMUNIZATION Aged Out No longer e ligible based on patient's age to complete this topic MENINGITIS IMMUNIZATION Aged Out No l onger eligible based on patient's age to complete this topic Pneumococcal Vaccine: Pediatrics (0 to 5 Years) and At-Risk Patients (6 to 49 Years) Aged Out No longer eligible based on patient's age to complete this topic RSV MONOCLONAL ANTIBODY Aged Out No l onger eligible based on patient's age to complete this topic Procedures Procedure Name Priority Date/Time Associated Diagnosis Comments BASIC METABOLIC PANEL STAT 03/07/2023 7:17 PM SPORTS WRITER from Last 3 Months or Most Recently Relevant to Health Maintenance Results * (ABNORMAL) Basic metabolic panel (03/07/2023 7:17 PM SPORTS WRITER) Sodium 140 135 - 145 mmol/L 03/07/2023 7:55 PM SPORTS WRITER LABORATORY Comment:Reference intervals for this test were updated on 12/04/2022 to more accurately reflect our healthy population. There may be differences in the flagging of prior results with similar values performed with this method. Interpretation of those prior results can be made in the context of the updated reference intervals. Potassium 4.8 3.4 - 5.3 mmol/L 03/07/2023 7:55 PM SPORTS WRITER LABORATORY Chloride 103 98 - 107 mmol/L 03/07/2023 7:55 PM SPORTS WRITER LABORATORY Carbon Dioxide (CO2) 26 22 - 29 mmol/L 03/07/2023 7:55 PM SPORTS WRITER LABORATORY Anion Gap 11 7 - 15 mmol/L 03/07/2023 7:55 PM SPORTS WRITER LABORATORY Urea Nitrogen 11.8 6.0 - 20.0 mg/dL 03/07/2023 7:55 PM SPORTS WRITER LABORATORY Creatinine 0.99 0.67 - 1.17 mg/dL 03/07/2023 7:55 PM SPORTS WRITER LABORATORY GFR Estimate >90 >60 mL/min/1. 73m2 03/07/2023 7:55 PM SPORTS WRITER LABORATORY Calcium 9.6 8.6 - 10.0 mg/dL 03/07/2023 7:55 PM SPORTS WRITER LABORATORY Glucose 121(H) 70 - 99 mg/dL 03/07/2023 7:55 PM SPORTS WRITER LABORATORY Blood BLOOD SPECIMEN / Unknown Venipuncture / Unknown 03/07/2023 7:17 PM SPORTS WRITER 03/07/2023 7:30 PM SPORTS WRITER us Gurvinder Franz MD LAB - BLOOD ORDERABLES Final R esult LABORATORY [facility] Acute Care Lab [address] [facility] Lab (1st floor, no room number) [place] [address], [facility] [phone] from Last 3 Months or Most Recently Relevant to Health Maintenance Insurance none (Work) [address] [place] [id number] [facility] Care Teams Baseball Player Relationship Specialty Start Date End Date Evelyn Hernandez DO PCP - General Family Practice 02/18/17
[2024-04-11 16:18] VITALS: BP 153/91; PULSE 85; RESP 16; TEMP 36.8; O2SAT 94; BMI 32.3
--- NOTE | 2024-04-11 16:24 | CRLHL7_ITS ---
For Patients: As a result of the Century Cures Act, medical imaging exams and procedure reports are released immediately into your electronic medical record. You may view this report before your referring provider. If you have questions, please contact your health care provider. INDICATION: Left leg pain and swelling. TECHNIQUE: Venous duplex ultrasound of the left lower extremity utilizing compression with dahl-scale, color Doppler, and spectral Doppler imaging. COMPARISON: None FINDINGS: There is no sonographic evidence of deep vein thrombosis in the left common femoral, deep femoral, superficial femoral, popliteal, posterior tibial, anterior tibial, peroneal, or contralateral common femoral veins. There is no visualized superficial vein thrombosis. The soft tissues are unremarkable. IMPRESSION: No deep vein thrombosis in the left lower extremity. Dictated by Soto Blum MD @ 04/11/2024 6:58:55 PM (Electronically Signed)
--- OUTSIDE RECORDS SUMMARY | 2024-04-11 18:15 | XMS_ITS | Clinical Summary ---
Author Organization [facility] Address [address] [place] [address] Care Team Providers Care Pbx Repairer Name Role Phone Unassigned, Provider Primary Care Provider Unava ilable Source Comments You are receiving this document as you are listed as the primary care provider,follow-up provider, or the patient has been referred to you for consultation.This is in compliance with the Medicare andCleveland Cliniccaid EHR Incentive Program,which states Providers who transition their patient to another setting of careor provider of care or refers their patient to another provider of care shouldprovide summary care record for each transition of care or referral. [facility] Allergies Active Allergy Reactions Criticality Noted Date [...] age to complete this topic Care Teams Pbx Repairer Relationship Specialty Start Date End Date Unassigned, Provider [address] [place] [address] PCP - General 05/18/00
--- OUTSIDE RECORDS SUMMARY | 2024-04-11 18:15 | XMS_ITS | Referral Summary ---
Author Organization [place] Address [address] [place] [address] Care Team Providers Care Changeover Operator Name Role Phone Evelyn Hernandez DO Primary Care Provider [phone] Allergies Active Allergy Reactions Criticality Noted Date [...] Comments Blood Pressure 133/87 03/07/2023 10:40 PM BRAKE ENGINEER Pulse 66 03/07/2023 10:40 PM BRAKE ENGINEER Temperature 36.7 C (98 F) 03/07/2023 10:40 PM BRAKE ENGINEER Respiratory Rate 20 03/07/2023 10:40 PM BRAKE ENGINEER Oxygen Saturation 98% 03/07/2023 10:40 PM BRAKE ENGINEER Inhaled Oxygen Concentration - - Weight 63.5 kg (140 lb) 02/18/2017 12:12 AM BRAKE ENGINEER Height 165.1 cm (5' 5) 02/18/2017 12:12 AM BRAKE ENGINEER Body Mass Index 23.3 02/18/2017 12:12 AM BRAKE ENGINEER Plan of Treatment Not on file Procedures Procedure Name Priority Date/Time Associated Diagnosis Comments BASIC METABOLIC PANEL STAT 03/07/2023 7:17 PM BRAKE ENGINEER from Last 3 Months or Most Recently Relevant to Health Maintenance Results * (ABNORMAL) Basic metabolic panel (03/07/2023 7:17 PM BRAKE ENGINEER) Sodium 140 135 - 145 mmol/L 03/07/2023 7:55 PM [facility] Comment:Reference intervals for this test were updated on 12/04/2022 to more accurately reflect our healthy population. There may be differences in the flagging of prior results with similar values performed with this method. Interpretation of those prior results can be made in the context of the updated reference intervals. Potassium 4.8 3.4 - 5.3 mmol/L 03/07/2023 7:55 PM [facility] Chloride 103 98 - 107 mmol/L 03/07/2023 7:55 PM [facility] Carbon Dioxide (CO2) 26 22 - 29 mmol/L 03/07/2023 7:55 PM [facility] Anion Gap 11 7 - 15 mmol/L 03/07/2023 7:55 PM [facility] Urea Nitrogen 11.8 6.0 - 20.0 mg/dL 03/07/2023 7:55 PM [facility] Creatinine 0.99 0.67 - 1.17 mg/dL 03/07/2023 7:55 PM [facility] GFR Estimate >90 >60 mL/min/1. 73m2 03/07/2023 7:55 PM [facility] Calcium 9.6 8.6 - 10.0 mg/dL 03/07/2023 7:55 PM [facility] Glucose 121(H) 70 - 99 mg/dL 03/07/2023 7:55 PM BRAKE ENGINEER [facility] Blood BLOOD SPECIMEN / Unknown Venipuncture / Unknown 03/07/2023 7:17 PM BRAKE ENGINEER 03/07/2023 7:30 PM BRAKE ENGINEER Gurvinder Franz MD LAB - BLOOD ORDERABLES Final R esult [facility] LABORATORY [facility] Acute Care Lab [address] [facility] Lab (1st floor, no room number) [place] [address], [facility] [phone] from Last 3 Months or Most Recently Relevant to [place] [id number] [place] [id number] [place] [phone] [place] [phone] [facility] Care Teams Changeover Operator Relationship Specialty Start Date End Date Evelyn Hernandez DO PCP - General Family Practice 02/18/17
--- OUTSIDE RECORDS SUMMARY | 2024-04-11 18:15 | XMS_ITS | Clinical Summary ---
Author Organization [place] Address [address] [place] [address] Care Team Providers Care Head Of Transport Logistics Name Role Phone Evelyn Hernandez DO Primary Care Provider [phone] Allergies Active Allergy Reactions Criticality Noted Date [...] Comments Blood Pressure 133/87 03/07/2023 10:40 PM PLATE KEEPER Pulse 66 03/07/2023 10:40 PM PLATE KEEPER Temperature 36.7 C (98 F) 03/07/2023 10:40 PM PLATE KEEPER Respiratory Rate 20 03/07/2023 10:40 PM PLATE KEEPER Oxygen Saturation 98% 03/07/2023 10:40 PM PLATE KEEPER Inhaled Oxygen Concentration - - Weight 63.5 kg (140 lb) 02/18/2017 12:12 AM PLATE KEEPER Height 165.1 cm (5' 5) 02/18/2017 12:12 AM PLATE KEEPER Body Mass Index 23.3 02/18/2017 12:12 AM PLATE KEEPER Plan of Treatment Health Maintenance Due Date [...] BASIC METABOLIC PANEL STAT 03/07/2023 7:17 PM PLATE KEEPER from Last 3 Months or Most Recently Relevant to Health Maintenance Results * (ABNORMAL) Basic metabolic panel (03/07/2023 7:17 PM PLATE KEEPER) Sodium 140 135 - 145 mmol/L 03/07/2023 7:55 PM PLATE KEEPER LABORATORY Comment:Reference intervals for this test were updated on 12/04/2022 to more accurately reflect our healthy population. There may be differences in the flagging of prior results with similar values performed with this method. Interpretation of those prior results can be made in the context of the updated reference intervals. Potassium 4.8 3.4 - 5.3 mmol/L 03/07/2023 7:55 PM PLATE KEEPER LAB[facility]AT[facility] Chloride 103 98 - 107 mmol/L 03/07/2023 7:55 PM PLATE KEEPER LABORATORY Carbon Dioxide (CO2) 26 22 - 29 mmol/L 03/07/2023 7:55 PM PLATE KEEPER LABORATORY Anion Gap 11 7 - 15 mmol/L 03/07/2023 7:55 PM PLATE KEEPER LABORATORY Urea Nitrogen 11.8 6.0 - 20.0 mg/dL 03/07/2023 7:55 PM PLATE KEEPER LAB[facility] Creatinine 0.99 0.67 - 1.17 mg/dL 03/07/2023 7:55 PM PLATE KEEPER LABORATORY GFR Estimate >90 >60 mL/min/1. 73m2 03/07/2023 7:55 PM PLATE KEEPER LABORATORY Calcium 9.6 8.6 - 10.0 mg/dL 03/07/2023 7:55 PM PLATE KEEPER LABORATORY Glucose 121(H) 70 - 99 mg/dL 03/07/2023 7:55 PM PLATE KEEPER LABORATORY Blood BLOOD SPECIMEN / Unknown Venipuncture / Unknown 03/07/2023 7:17 PM PLATE KEEPER 03/07/2023 7:30 PM PLATE KEEPER us Gurvinder Franz MD LAB - BLOOD ORDERABLES Final R esult LABORATORY [facility] Acute [facility] Lab [address] [facility] Lab (1st floor, no room number) [place] [address], [facility] [phone] from Last 3 Months or Most Recently Relevant to Health Maintenance Insurance none (Work) [address] [place] [id number] [facility] Care Teams Head Of Transport Logistics Relationship Specialty Start Date End Date Evelyn Hernandez DO PCP - General Family Practice 02/18/17
--- OUTSIDE RECORDS SUMMARY | 2024-04-11 18:15 | XMS_ITS | Clinical Summary ---
Author Organization [facility] Address [place], [place] [address] Care Team Providers Care Director Of Research Name Role Phone Mary Evelyn Williamsone Primary Care Provider [phone] Allergies Active Allergy Reactions Criticality Noted Date [...] Department Care Team Description 03/31/2024 9:30 AM [employer] Telemedicine [facility] [address] [place] [address] Soo Corralse, CIPRIANO Medication Management; Telehealth ([place]) 03/30/2024 Travel 03/27/2024 3:00 PM [employer] Procedure Only [facility] [address] [place] [address] Testing (Spirometry/O2 testing ) 03/27/2024 Travel 03/23/2024 Telephone [facility] [address] [place] [address] Soo Corrales, CIPRIANO Appointment Reminder (Adult intake call) 03/19/2024 Orders Only [facility] Scanner 1 scan: (1-Ord) INCOMING RECORDS-CT, [facility], 03/19/2024 03/19/2024 Orders Only [facility] Scanner 1 scan: (1-Ord) INCOMING RECORDS-LABS, [facility], 03/19/2024 03/18/2024 4:05 PM [employer] Ancillary Procedure [facility] [address] [place] [address] 03/18/2024 3:20 PM [employer] Office Visit [facility] [address] [place] [address] Evelyn Hernandez DO Sleep Follow-up; Follow Up (oxygen follow up) 03/17/2024 Travel 03/12/2024 Refill [facility] [address] [facility] [address] [place] [address] Julieth Anglin MD Refill Request (Lamotrigine) 03/12/2024 Telephone [facility] [address] [place] [address] Evelyn Hernandez, Other 03/06/2024 Refill [facility] [address] [facility] [address] [place] [address] Service, Viviane Ramos MD Refill Request (Quetiapine 100mg tablets; Sertraline 100mg tabs) 03/02/2024 2:40 PM [employer] Office Visit [facility] [address] [place] [address] Kadi Borja PA Sleep Consult; Follow Up (Covid ) 03/02/2024 Travel 01/31/2024 3:30 PM [employer] Office Visit [facility] [address] [place] [address] Evelyn Hernandez DO Diabetes (follow up) 01/31/2024 [...] = 0.6 oz pur e alcohol) minimal [facility] Utilities Answer Date Recorded Do you have [...] on file Legal Sex Male 5:24 AM [employer] Gender Identity Not on file Sexual Orientation Not on file Obstetrics History Last Filed Vital Signs Vital Sign Reading Time Taken Comments Blood Pressure 138/78 03/18/2024 3:52 PM [employer] Pulse 88 03/18/2024 3:27 PM [employer] Temperature 36.3 C (97.4 F) 06/13/2022 4:14 PM CDT Respiratory Rate 18 06/19/2022 9:45 AM CDT Oxygen Saturation 94% 03/27/2024 3:53 PM [employer] Inhaled Oxygen Concentration - - Weight 92.5 kg (204 lb) 03/27/2024 3:01 PM [employer] Height 172 cm (5' 7.72) 03/02/2024 2:46 PM [employer] Body Mass Index 31.28 03/02/2024 2:46 PM [employer] Plan of Treatment Upcoming Encounters Date Type Department Care Team (Late st Contact Info) Description 05/01/2024 8:15 AM [employer] Office Visit [facility] [address] [place], [place] [id number] [place] [address] [address] [place], [place] [id number] 05/27/2024 2:00 PM CDT Telemedicine [facility] [address] [place] [address] Cristel Crawford PA [address] [place] [address] Health Maintenance Due Date Last [...] 12/04/2023, Additional history exists Fecal testing sDNA-FIT ([place] guard) for age 45-75 04/16/2025 04/16/2022 Lipids for age 45-75 12/22/2028 12/23/2023, 04/04/2022, 03/01/2021, Additional history exists Tetanus booster 03/18/2034 03/18/2024, 03/11, 10/19/2007 (Completed outside of [facility]) HIV for age 15-65 Completed 09/22/2014 Hepatitis C screening for ag e 18-79 Completed 09/22/2014 Tdap Completed 03/18/2024, 03/22/2014 Procedures Procedure Name Priority Date/Time Associated Diagnosis Comments AL BRNCDILAT RSPSE SPMTRY PRE&POST-BRNCDILAT ADMN Routine 03/27/2024 12:00 AM [employer] Chronic respiratory failure with hypoxia (HC) SCAN CORRESP-LABORATORY RESULTS 03/19/2024 12:00 AM [employer]GAL SCAN CORRESP-IMAGING 03/19/2024 12:00 AM [employer] XR CHEST 2 VIEWS PA AND LATERAL Routine 03/18/2024 4:15 PM [employer] Chronic respiratory failure with hypoxia (HC) CBC WITH AUTO DIFFERENTIAL Routine 03/18/2024 4:14 PM [employer] Chronic respiratory failure with hypoxia (HC) COMP METABOLIC PANEL Routine 03/18/2024 4:14 PM [employer] Chronic respiratory failure with hypoxia (HC) URINE ALBUMIN TO CREATININE RATIO, RANDOM Routine 01/31/2024 4:19 PM [employer] Type 2 diabetes mellitus without complication, without long-term current use of insulin (HC) HEMOGLOBIN A1C Routine 01/31/2024 4:19 PM [employer] Type 2 diabetes mellitus without complication, without long-term current use of insulin (HC) LIPID PANEL W REFLEX MEASURED LDL Routine 12/23/2023 3:26 PM CDT Mixed dyslipidemia SDNA-FIT EXTERNAL (COLOGUARD) Routine 04/16/2022 10:30 PM [employer] Screening for colon cancer ANTI HIV 1/2 Routine 09/22/2014 4:51 PM CDT Exposure to potentially hazardous body fluids ANTI HCV Routine 09/22/2014 4:51 PM CDT Exposure to potentially hazardous body fluids from Last 3 Months or Most Recently Relevant to Health Maintenance Results * AL BRONCHOSPASM RESP DILATOR PRE/POST ADMIN (03/27/2024 12:00 AM INTEL[employer]ERTY PAR[employer]GAL) us Evelyn Hernandez DO PB - RESPIRATORY SYSTEM SER VICES Final Result * SCAN CORRESP-LABORATORY RESULTS (03/19/2024 12:00 AM INTEL[employer]UAL PROPERTY PARALEGAL) us Scanner OTHER Final Result * SCAN CORRESP-IMAGING (03/19/2024 12:00 AM INTEL[employer]UAL PROPERTY PARALEGAL) Anatomical Region Laterality Modality Other us Scanner OTHER Final Result * XR CHEST 2 VIEWS PA AND LATERAL (03/18/2024 4:15 PM INTEL[employer]UAL PROPERTY PARALEGAL) Anatomical Region Laterality Modality CHEST, THORAX, Lung, HEART Compu anatoly Radiography 03/18/2024 4:20 PM INTEL[employer]UAL PROPERTY PARALEGAL Impressions 03/18/2024 4:20 PM INT[employer]UAL PROPERTY PARALEGAL No acute findings. Dictated by Guero Ramos MD @ 03/18/2024 4:20:54 PM (Electronically Signed) Narrative 03/18/2024 4:20 PM INTEL[employer]UAL PROPERTY PAR[employer]GAL For Patients: As a result of the [...] (ABNORMAL) CBC AND DIFFERENTIAL (03/18/2024 4:14 PM INTELLECTUAL PROPERTY PARALEGAL) WHITE BLOOD CELL COUNT 7.1 3.8 - [...] BLOOD SPECIMEN / Unknown 03/18/2024 4:14 PM INTEL[employer]UAL PROPERTY PAR[employer]GAL 03/18/2024 4:14 PM INTEL[employer] PROPERTY PAR[employer]GAL us Evelyn Hernandez DO HEMATOLOGY Final Resul t [employer] [address] [place] [address], [facility] [address] [place] [address] * (ABNORMAL) COMP METABOLIC PANEL (03/18/2024 4:14 PM INTEL[employer]UAL PROPERTY PARALEGAL) GLUCOSE 109(H) 65 - 99 mg/dL [facility] Comment: Fasting reference interval For [...] BLOOD SPECIMEN / Unknown 03/18/2024 4:14 PM INTEL[employer]UAL PROPERTY PARALEGAL 03/18/2024 4:14 PM INT[employer] PROPERTY PAR[employer]GAL Evelyn Hernandez DO CHEMISTRY Final Resul t [facility] [address] [place] [address], [facility] [address] [place] [address] * (ABNORMAL) HEMOGLOBIN A1C (01/31/2024 4:19 PM INT[employer]) HEMOGLOBIN A1C 6.4(H) <5.7 % of total [...] BLOOD SPECIMEN / Unknown 01/31/2024 4:19 PM [employer] PROPERTY PAR[employer]GAL 01/31/2024 4:19 PM [employer] PAR[employer]GAL Evelyn Hernandez DO CHEMISTRY Final Resul t Performing Organization Address City/[facility] Co de Phone Number [facility] [employer] [facility] [address] [place] [address], [facility] [address] [place] [address] * URINE ALBUMIN TO CREATININE RATIO, RANDOM (01/31/2024 4:19 PM INTEL[employer] PROPERTY PARALEGAL) CREATININE, RANDOM URINE 132 20 - 320 mg/dL [facility] ALBUMIN, URINE 0.8 See Note: mg/dL [facility] Comment: Reference Range: Reference Range Not established ALBUMIN/CREATININE RATIO, RANDOM URINE 6 <30 mg/g creat [facility] Comment: The ADA defines abnormalities [...] URINE SPECIMEN / Unknown 01/31/2024 4:19 PM [employer]GAL 01/31/2024 4:19 PM INT[employer] PROPERTY PAR[employer]GAL Evelyn Guerra Mary DO URINE Final Resul t Performing Organization Address [facility] Co de Phone Number [facility] [employer] [facility] [address] [place] [address], [facility] [address] [place] [address] * (ABNORMAL) LIPID PANEL W REFLEX MEASURED LDL (12/23/2023 3:26 PM CDT) CHOLESTEROL, TOTAL 204(H) <200 mg/dL [facility] HDL CHOLESTEROL 40 > OR = 40 mg/dL [facility] TRIGLYCERIDES 445(H) <150 mg/dL [facility] Comment: If a non-fasting specimen was collected, consider repeat triglyceride testing on a fasting specimen if clinically indicated. Jimi et al. J. of Clin. Lipidol. 2015;9:129-169. LDL-CHOLESTEROL [employer] Comment: LDL cholesterol not calculated. [...] LDL-C. Darinel STARKEY et al. JERRY. 2013;310(19): 1218-7028 (http://education.Legal Egg/faq/HEP841) CHOL/HDLC RATIO 5.1(H) <5.0 (calc) [facility] NON HDL CHOLESTEROL 164(H) <130 mg/dL (calc) [facility] Comment: For patients with diabetes plus 1 major ASCVD risk factor, treating to a non-HDL-C goal of <100 mg/dL (LDL-C of <70 mg/dL) is considered a therapeutic option. Blood BLOOD SPECIMEN / Unknown 12/23/2023 3:26 PM CDT 12/23/2023 3:26 PM CDT Evelyn Hernandez DO CHEMISTRY Final Resul t [facility] [address] [place] [address], [facility] [address] [place] [address] * SDNA-FIT EXTERNAL (COLOGUARD) (04/16/2022 10:30 PM INTEL[employer]UAL PROPERTY PARALEGAL) NONINV COLON CA DNA+OCC BLD SCRN STL-IMP Negative Negative 04/25/2022 1:32 AM INTELLECTUAL PROPERTY PARALEGAL [employer] (CLIA #:[id number]) Comment: NEGATIVE TEST RESULT. A negative Cologuard [...] Pat et al, N Engl J Med 2014;370(14):7476-7939) The normal value (reference range) for this assay is negative. COLOGUARD RE-SCREENING RECOMMENDATION: Periodic colorectal cancer screening is an important part of preventive healthcare for asymptomatic individuals at average risk for colorectal cancer. Following a negative Cologuard result, the Scottish Cancer Society and U.S. Multi-Society Task Force screening guidelines recommend a Cologuard re-screening interval of 3 years. References: [place] Cancer Society Guideline for Colorectal Cancer Screening: https://www.cancer.org/cancer/svxiy-fvcubf-fuabag/sjeyenulu-wtydjzqcz-xkwuglr/ac s-rec ommendations.html.; Guillermo DK, Faiza CR, Dank MacarioK, Colorectal Cancer Screening: Recommendations for Physicians and Patients from the U.S. Multi-Society Task Force on Colorectal Cancer Screening , Am J Gastroenterology 2017; 112:9335-4080. TEST DESCRIPTION: Composite algorithmic analysis of stool [...] (Williams Tao al, N Engl J Med 2014;370(14):0613-6897.) Cologuard may produce a false negative or false positive result (no colorectal cancer or precancerous polyp present at colonoscopy follow up). A negative Cologuard test result does not guarantee the absence of CRC or advanced adenoma (pre-cancer). The current Cologuard screening interval is every 3 years. (Scottish Cancer Society and U.S. Multi-Society Task Force). Cologuard performance data in a 10,000 patient pivotal study using colonoscopy as the reference method can be accessed at the following location: www.ResourceKraft/results. Additional description of the Cologuard test process, warnings and precautions can be found at www.cologuard.com. Stool specimen (specimen) (Rectum) 04/16/2022 10:30 PM INTELLECTUAL PROPERTY PARALEGAL 04/18/2022 12:39 PM INTEL[employer]UAL PROPERTY PARALEGAL us Evelyn Hernandez DO URINE Final Resul t [employer] (CLIA #:[id number]) [address]o [place] . [place] [id number], * ANTI HCV (09/22/2014 4:51 PM CDT) HEPATITIS C ANTIBODY Non-Reacti ve Non-Reacti ve 09/23/2014 5:26 PM CDT [facility] Blood specimen (specimen) BLOOD SPECIMEN / Unknown Venipuncture / Unknown 09/22/2014 4:51 PM CDT 09/22/2014 4:52 PM CDT Narrative [facility] - 09/23/2014 5:26 PM CDT Antibodies to HCV not detected; does not exclude the possibility of exposure to HCV. us Evelyn Hernandez DO SEND OUTS Final Resul t [facility] [address] [place] [address], * ANTI HIV 1/2 (09/22/2014 4:51 PM CDT) HIV-1/HIV-2 ANTIBODY Non-Reacti ve Non-Reacti ve 09/23/2014 4:18 PM CDT [facility] Blood specimen (specimen) BLOOD SPECIMEN / Unknown Venipuncture / Unknown 09/22/2014 4:51 PM CDT 09/22/2014 4:52 PM CDT Narrative [facility] - 09/23/2014 4:18 PM CDT HIV-1 p24 and HIV-1/HIV-2 Ab not detected us Evelyn Hernanedz DO SEND OUTS Final Resul t Performing Organization Address [facility] Co de Phone Number [facility] [address] [place] [address], from Last 3 Months or Most Recently Relevant to [place] [address] [facility] Care Teams Director Of Research Relationship Specialty [place] [address] [address] [address] PCP - General Family Practice 01/25/14
--- NOTE | 2024-04-11 18:48 | ED.GENADULT ---
HPI - General Adult General Chief complaint: Extremity Pain/Injury, Lower Stated complaint: Blood Clot concerns Time Seen by Provider: 04/11/24 17:49 Source: patient Mode of arrival: ambulatory Limitations: no limitations History of Present Illness HPI narrative: 49-year-old male, presenting with left lower extremity leg pain this started approximately 1 week ago. Patient denies trauma to the leg. He denies fevers, chills, shortness of breath or cough. He states that the pain started interiorly and radiates down into the foot. Patient was diagnosed with COVID-19 approximately 2 months ago and has been oxygen dependent since. He was told to be aware of the possibility of blood clots since his diagnosis so patient presents to the ER today to rule out DVT. Related Data Home Medications ?Medication ?Instructions ?Recorded ?Confirmed atorvastatin 80 mg tablet 80 mg PO QPM 02/13/24 04/11/24 lamotrigine 150 mg tablet 150 mg PO BID 02/13/24 04/11/24 omeprazole 20 mg tablet,delayed 20 mg PO DAILY 02/13/24 04/11/24 release quetiapine 100 mg tablet 300 mg PO QPM 02/13/24 04/11/24 sertraline 100 mg tablet 200 mg PO DAILY 02/13/24 04/11/24 Allergies Allergy/AdvReac Type Severity Reaction Status Date / Time No Known Drug Allergies Allergy Verified 02/13/24 08:01 Review of Systems Status of ROS: Reports: 6 or more systems reviewed and unremarkable except as noted in History and below PFSH PFS Medical History Sleep disorder ?G47.9 - Sleep disorder, unspecified (ICD-10) GERD (gastroesophageal reflux disease) ?K21.9 - Gastro-esophageal reflux disease without esophagitis (ICD-10) BPH (benign prostatic hyperplasia) ?N40.0 - Benign prostatic hyperplasia without lower urinary tract symptoms (ICD-10) Major depression, chronic ?F32.9 - Major depressive disorder, single episode, unspecified (ICD-10) Mixed hyperlipidemia ?E78.2 - Mixed hyperlipidemia (ICD-10) Type 2 diabetes mellitus, without long-term current use of insulin ?E11.9 - Type 2 diabetes mellitus without complications (ICD-10) Surgical History History of tonsillectomy ?Z90.89 - Acquired absence of other organs (ICD-10) Social History (Updated 02/13/24 @ 10:43 by Nelsy Winston MD) Narrative: residential partner would be MDM if needed, non-smoker (uses chewing tobacco), no ETOH use. Works in [employer]. Full Code. What is your current living situation?: I presently have a place to live Problems where you live: no known problems Problems where you live details: NA In the past 12 months, utilities in danger of being shut off: no In past 12 months, lack of transportation kept you from medical appts, meetings, work, or getting things needed for daily living: no In the past 12 mos, have been you worried that your food would run out before you had money to buy more?: never true In the past 12 mos, the food you bought just didn't last and you didn't have money to buy more?: never true Highest level of school completed/degree received: high school graduate Smoking Status: Former smoker Do you use any of these nicotine containing products: Smokeless Tobacco Second hand tobacco smoke exposure: Yes How often do you have a drink containing alcohol: never AUDIT-C Alcohol total score: 0 Non-prescribed substance use: denies use Caffeine: Yes How often does anyone, including family, friends and others, physically hurt you: never How often does anyone, including family, friends and others, insult or talk down to you: never How often does anyone, including family, friends and others, threaten you with harm: never How often does anyone, including family, friends and others, scream or curse at you: never Exam Narrative: Exam Narrative: Well-nourished well-developed patient in no acute distress. Alert and oriented. Answers questions appropriately. Mood and affect are appropriate. Thoughts are goal oriented and rational. No tangential or magical thinking noted. Patient speaks in full sentences without needing to catch his breath. HEENT: Normocephalic atraumatic. Pupils are equally round reactive to light. Extraocular muscles are intact. Conjunctivae are moist without any icterus noted. Moist mucous membranes. Lungs: Clear to auscultation bilaterally no wheezes rhonchi or rales are appreciated. Extremities: Bilateral lower extremities are without edema. Normal DP and PT pulses. Patient has bruising over the lateral the foot with some mild tenderness to palpation. He has full range of motion at the ankle without pain. He has discomfort to palpation over the anterior upper garcia. There is no significant swelling or discoloration noted in the area. He has a negative Homans sign. He has no tenderness in calf. Skin: Well perfused . Const: Vital Signs, click to edit/add: Vital Signs - 24 hr 04/11/24 16:18 Temperature 98.2 F Pulse Rate [Pulse Oximeter] 85 Respiratory Rate 16 Blood Pressure [Ri ght Upper Arm] 153/91 H Pulse Oximetry 94 Oxygen Delivery Me thod Nasal Cannula Oxygen Flow Rate 2 Course Course ED Course: Ultrasound was done of the lower extremity: This was unremarkable. Vital Signs Vital signs: Initial Vital Signs Temperature 98.2 F 04/11/24 16:18 Temperature Source Temporal Artery Scan 04/11/24 16:18 Pulse Rate 85 04/11/24 16:18 Respiratory Rate 16 04/11/24 16:18 Blood Pressure 153/91 H 04/11/24 16:18 Blood Pressure Mean 111 H 04/11/24 16:18 Blood Pressure Position Sitting 04/11/24 16:18 Pulse Oximetry 94 04/11/24 16:18 Oxygen Delivery Method Nasal Cannula 04/11/24 16:18 Oxygen Flow Rate 2 04/11/24 16:18 Vital Signs Temperature 98.2 F 04/11/24 16:18 Pulse Rate 85 04/11/24 16:18 Respiratory Rate 16 04/11/24 16:18 Blood Pressure 153/91 H 04/11/24 16:18 Pulse Oximetry 94 04/11/24 16:18 Oxygen Delivery Method Nasal Cannula 04/11/24 16:18 Oxygen Flow Rate 2 04/11/24 16:18 Temperature 98.2 F 04/11/24 16:18 Pulse Rate 85 04/11/24 16:18 Respiratory Rate 16 04/11/24 16:18 Blood Pressure 153/91 H 04/11/24 16:18 Pulse Oximetry 94 04/11/24 16:18 Oxygen Delivery Method Nasal Cannula 04/11/24 16:18 Oxygen Flow Rate 2 04/11/24 16:18 Medical Decision Making MDM Narrative Medical decision making narrative: [age] year male with leg pain with some resulting bruising. We discussed the possibility of some kind of mild internal trauma like a torn muscle. It could cause some discomfort and bleeding is with subsequent bruising. Recommend symptomatic treatment at this time. Imaging Data Venous US: Attestation: I have reviewed the pertinent imaging results. Radiologist's impression: TECHNIQUE: Venous duplex ultrasound of the left lower extremity utilizing compression with dahl-scale, color Doppler, and spectral Doppler imaging. COMPARISON: None FINDINGS: There is no sonographic evidence of deep vein thrombosis in the left common femoral, deep femoral, superficial femoral, popliteal, posterior tibial, anterior tibial, peroneal, or contralateral common femoral veins. There is no visualized superficial vein thrombosis. The soft tissues are unremarkable. IMPRESSION: No deep vein thrombosis in the left lower extremity. Discharge Plan Discharge Clinical Impression: Left leg pain Patient Disposition: Home, Self-Care Condition: Stable Additional Instructions: Okay to take Tylenol as needed for discomfort. Elevate the leg as needed for swelling. Okay to use a heating pad to sore areas. Do not apply heat directly to the skin and do not use for more than 20 minutes at a time. Symptoms should slowly improve over the next couple of weeks. If you feel like you are getting worse instead of better then follow-up with your primary care provider. Prescriptions: No Action lamotrigine 150 mg tablet 150 mg PO BID atorvastatin 80 mg tablet 80 mg PO QPM sertraline 100 mg tablet 200 mg PO DAILY quetiapine 100 mg tablet 300 mg PO QPM omeprazole 20 mg tablet,delayed release (DR/EC) 20 mg PO DAILY Follow Up/Referrals: Provider,Not a Local [Primary Care Provider] - Stand Alone Forms: [employer] [place] Info Instructions
== END 2024-04-11 19:10 | disposition home or self-care (01) ==
PROVIDERS: Emergency Provider Family Medicine
DX: M79.605 Pain in left leg (principal)
CPT/HCPCS: 93971; 99283; 99284